=== PATIENT | male | born 2000 | race Caucasian/White ===

== ENCOUNTER 2018-11-23 12:55 | Observation (INO) | payer OTHER ==
[~2018-11-23] VITALS: Ht 193 cm; Wt 72.6 kg
--- OUTSIDE RECORDS SUMMARY | ~2018-11-23 | XMS | Encounter Summary ---
Demographics + + + | Address | [address] | | | [place] [address] | + + + | Home Phone | [phone] | + + + | Preferred Language | Unknown | + + + | Marital Status | Never | + + + | Jewish Affiliation | Unknown | + + + | Race | White | + + + | Ethnic Group | Not or | + + + Author + + + | Author | | + + + | Organization | | + + + | Address | [address] | | | [place] [address] | + + + | Phone | [phone] | + + + Care Team Providers + +------+ + | Care Road Freight Brake Coupler Name | Role | Phone | + +------+ + | Dr. Family Knight | 3 | Unavailable | | [place] | | | + +------+ + | Kamini Penaloza MD | 3 | Unavailable | + +------+ + | Dr. Family Knight | 4 | Unavailable | | [place] | | | + +------+ + Reason for Visit + + | Insomnia; Attention deficit hyperactivity disorder | + + Instructions + + | 1. Insomnia | + + | insomnia in children: care instructions | + + | sleep problems in your teen: care instructions | + + | 2. Attention deficit hyperactivity disorder | + + | attention deficit hyperactivity disorder (ADHD) in children: care instructions | + + | 3. Chronic back pain | + + | chiropractic referral - Please consult and provide treatment as needed. | + + | 4. Acne | + + + + | Discussion Note | + + | [id number] | + + Plan of Care + + + + + | Reminders | | | Provider | | | | | | + + + + + | Appointments | Office Visit 30 | 04/10/2017 3:45PM | Leonidas Marcano MD | + + + + + | | Office Visit 30 | on or around | Kamini Penaloza MD | | | | 06/16/2017 | | + + + + + | Lab | None recorded. | | | + + + + + | Referral | Chiropractic | 03/16/2017 | Srini Manriquez DC | | | Referral | | | + + + + + | Procedures | None recorded. | | | + + + + + | Surgeries | None recorded. | | | + + + + + | Imaging | None recorded. | | | + + + + + Medications + + + + | Name | Start Date | | | | | | + + + + + +---+ | amantadine HCl 100 mg capsule | | | take 1 capsule by mouth twice a day | | + +---+ | clonidine HCl 0.2 mg tablet | | | take 1 tablet by mouth at bedtime | | + +---+ | melatonin | | | 3mg 2 tablets at bedtime | | + +---+ | quetiapine ER 400 mg tablet,extended | | | release 24 hr take 1 tablet by mouth at | | | bedtime | | + +---+ | quetiapine ER 50 mg tablet,extended | | | release 24 hr take 2 tablets by mouth at | | | bedtime | | + +---+ | sertraline 100 mg tablet | | | take 1 tablet by mouth every morning | | + +---+ | Ventolin HFA 90 mcg/actuation aerosol | | | inhaler inhale 2 puffs by mouth every 4 | | | hours if needed | | + +---+ | Vitamin D3 2,000 unit capsule take 1 | | | capsule by mouth once daily NUTRIONAL | | | SUPPLEMENT SECONDARY TO LIVING IN [place]ST[place] | | | [place] | | + +---+ Medications Administered None recorded. Vitals + + + + + | Height | Weight | BMI | Blood Pressure | + + + + + | 6 ft 2 in | 163 lbs 9.6 oz | 21 kg/m2 | 100/68 mm[Hg] | + + + + + Lab Results None recorded. Allergies +---------+ + + + +-------+ | Code | Code System | Name | Reaction | Severity | Onset | +---------+ + + + +-------+ | [id number] | RxNorm | Adderall | Confusion | Moderate to | | | | | | | Severe | | +---------+ + + + +-------+ | [id number] | RxNorm | Aaron | | | | +---------+ + + + +-------+ | | | Broseley Flavor | | | | +---------+ + + + +-------+ | | | Sulfa | | | | | | | (Sulfonamide | | | | | | | | | | | | | | Antibiotics) | | | | +---------+ + + + +-------+ | [id number] | RxNorm | Sulfadiazine | | | | +---------+ + + + +-------+ Problems + + + + + + | Name | Status | Onset Date | Source | | | | | | | | + + + + + + + +--------+ +---+ | Attention Deficit | Active | 08/25/2016 | | | Hyperactivity | | | | | Disorder | | | | + +--------+ +---+ | Alcohol | Active | 08/25/2016 | | | Syndrome | | | | + +--------+ +---+ | Dysthymia | Active | 09/04/2016 | | + +--------+ +---+ | Insomnia | Active | 09/04/2016 | | + +--------+ +---+ Procedures None recorded. Vaccine List + + | Vaccine Type | + + | DTaP | + + | 1998 1 | + + | 1998 1 | + + | 01/21/2002 1 | + + | 04/23/2002 1 | + + | DTP-Hib | + + | 1998 1 | + + | 08/30/1999 1 | + + | Hep A ped/adol, 2 dose | + + | 01/01/2014 1 | + + | 12/22/2014 1 | + + | Hep B, adolescent or pediatric | + + | 1998 1 | + + | 1998 1 | + + | 1998 1 | + + | 01/01/2014 1 | + + | Hib (HbOC) | + + | 1998 1 | + + | Hib, unspecified formulation | + + | 1998 1 | + + | HPV, quadrivalent | + + | 01/01/2014 1 | + + | 03/12/2014 1 | + + | 12/22/2014 1 | + + | IPV | + + | 04/23/2002 1 | + + | meningococcal MCV4P | + + | 01/01/2014 1 | + + | MMR | + + | 08/30/1999 1 | + + | 04/23/2002 1 | + + | OPV | + + | 1998 1 | + + | 1998 1 | + + | 1998 1 | + + | 08/30/1999 1 | + + | Tdap | + + | 10/05/2011 1 | + + | varicella | + + | 03/10/2000 1 | + + | 01/01/2014 1 | + + Social History + + +---+ | Smoking Status | Never Smoker | | + + +---+ Past Encounters + + | 03/16/2017 | | Insomnia; Attention Deficit Hyperactivity Disorder; Chronic Back Pain; Acne | | Kamini Penaloza MD: [address] [address], Ph. 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 He is here to review his problem list, medications and nee d for vaccines to update his immunization schedule. He c/o thoracolumbar spine pain and in termittent hip and knee pain. He sits with slumped posture with kyphosis. He has no known b ack injury. He denies foot drop, bowel or bladder dysfunction. He is requesting to undergo consultation by Srini Manriquez, chiropractor.<div>Patient c/o insomnia and decreased appetite. He has been very stressed. He is taking melatonin 6 mg po q h.s. His consult with Leonidas zamorano, psychiatrist, from 10/03/16 is reviewed.</div><div>Patient requests review of labs done o n 09/13/16.</div> Review of Systems + + + | | Moderate Male ROS | + + + | Reported By: | Patient | + + + | Constitutional: | Constitutional: no fever, no significant | | | weight loss/gain | + + + | ENMT: | Mouth/Throat: no sore throat. Nose: no | | | nose/sinus problems. Eyes: no ocular | | | discharge. Ears no ear pain, no ringing in | | | the ears; decreased hearing in his left | | | ear | + + + | Cardiovascular: | Cardiovascular: no chest pain, no | | | palpitations | + + + | Respiratory: | Respiratory: no wheezing, no shortness of | | | breath | + + + | Gastrointestinal: | Gastrointestinal: no nausea, no vomiting, | | | no diarrhea | + + + | Genitourinary: | Genitourinary: no hematuria, no dysuria, | | | no urinary frequency | + + + | Musculoskeletal: | Musculoskeletal: no myalgias, | | | arthralgias/joint pain; back pain | + + + | Integumentary: | Skin: no pruritis, lesions; acne on face | | | at hairline | + + + | Neurologic: | Neurologic: no seizures, no headaches | + + + Physical Exam + + + | | Male Exam - Moderate | + + + | Reported By: | Patient | + + + | Constitutional: | General Appearance: awake, alert, oriented | | | x 3, NAD, hydrated; BMI = 21 | + + + | HEENT: | Eyes: EOMI. Ears: normal EACs, normal | | | tympanic membranes. Oropharynx: no | | | pharyngeal erythema, no pharyngeal | | | exudates; Normal dentition | + + + | Neck: | Neck: no cervical lymphadenopathy, no | | | thyroid nodules, no carotid bruits | + + + | Cardiovascular: | Heart Auscultation: RRR, normal S1, normal | | | S2, no murmurs | + + + | Lungs: | Auscultation: clear to auscultation | | | bilaterally, no wheezing, no | | | rales/crackles, no rhonchi | + + + | Abdomen: | Bowel Sounds: normal. Inspection and | | | Palpation: no tenderness. Liver: | | | non-tender. Spleen: non-tender | + + + | Musculoskeletal:: | Extremities: no cyanosis, no edema; lumbar | | | spine tenderness with paraspinal muscle | | | spasms | + + + | Skin: | Inspection and palpation: lesion; | | | erythematous, maculopapular lesions on | | | hairline | + + + | Notes: | Mood: easily distracted and states he is | | | stressed. | + + +"
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
--- OUTSIDE RECORDS SUMMARY | ~2018-11-23 | XMS | Encounter Summary ---
Demographics + + + | Address | [address] | | | [place] [address] | + + + | Home Phone | [phone] | + + + | Preferred Language | Unknown | + + + | Marital Status | Never | + + + | Baptist Affiliation | Unknown | + + + | Race | White | + + + | Ethnic Group | Not or | + + + Author + + + | Author | | + + + | Organization | | + + + | Address | [address] | | | [place] [address] | + + + | Phone | [phone] | + + + Care Team Providers + +------+ + | Care Glass Deposition Tender Name | Role | Phone | + +------+ + | Isamar Shelton MD | 3 | Unavailable | + +------+ + Reason for Visit + + | Procedure | + + Instructions + + | 1. Ganglion cyst | + + | lidocaine 1 %-epinephrine 1:100,000 injection solution | + + + + | Discussion Note | + + | [id number] | + + Patient educational handouts: No information available. Plan of Care + + + + + | Reminders | | | Provider | | | | | | + + + + + | Appointments | Work in 10 | 08/07/2018 12:00PM | Isamar Shelton, | | | | | MD | + + + + + | | Office Visit 30 | 08/15/2018 4:15PM | Leonidas Marcano MD | + + [...] HCl 0.1 mg tablet | | | TAKE ONE TABLET BY MOUTH IN THE MORNING | | + +---+ | clonidine HCl 0.2 mg tablet | | | TAKE ONE TABLET BY MOUTH AT BEDTIME | | + +---+ | lidocaine 1 %-epinephrine 1:100,000 | | | injection solution Inject now | | + +---+ | melatonin | | | 3mg 2 tablets at bedtime | | + +---+ | paroxetine 40 mg tablet | | | Take 1.5 tablets every day by oral route. | | + +---+ | quetiapine ER 400 mg tablet,extended | | | release 24 hr TAKE ONE TABLET BY MOUTH AT | | | BEDTIME | | + +---+ | quetiapine ER 50 mg tablet,extended | | | release 24 hr take 2 tablets by mouth at | | | bedtime | | + +---+ | Ventolin HFA 90 mcg/actuation aerosol | | | inhaler inhale 2 puffs by mouth every 4 | | | hours if needed | | + +---+ | Vitamin D3 2,000 unit capsule | | | TAKE ONE CAPSULE BY MOUTH ONE TIME DAILY | | + +---+ Medications Administered + + + + | Name | Date | | + + + + + + + | lidocaine 1 %-epinephrine 1:100,000 | 3047-07-05O07:05:00 | | injection solutionInject now | | + + + Vitals + + + + + | Height | Weight | BMI | Blood Pressure | + + + + + | 6 ft 2 in | 167 lbs | 21.4 kg/m2 | 118/78 mm[Hg] | + + + + + Lab Results None recorded. Allergies +---------+--------+ + + +--------+-------+ | Code | Code | Name | Reaction | Severity | Status | Onset | | | System | | | | | | +---------+--------+ + + +--------+-------+ | [id number] | RxNorm | Adderall | Confusion | Moderate | Active | | | | | | | to Severe | | | +---------+--------+ + + +--------+-------+ | [id number] | RxNorm | Aaron | | | [...] | | +---------+--------+ + + +--------+-------+ | [id number] | RxNorm | Sulfadiazi | | | [...] | 12/22/2014 1 | + + | influenza, injectable, quadrivalent | + + | 09/12/2017 0.5 mL | + + | influenza, injectable, quadrivalent, preservative free | + + | 05/29/2018 0.5 mL | + + | IPV | + + | 04/23/2002 1 | + + | 09/12/2017 0.5 mL | + + | meningococcal MCV4O | + + | 09/12/2017 | + + | 09/12/2017 0.5 mL | + + | meningococcal MCV4P | [...] | 10/05/2011 1 | + + | 09/12/2017 | + + | 09/12/2017 0.5 mL | + + | varicella | + + | 03/10/2000 1 | + + | 01/01/2014 1 | + + Social History + + +---+ | Smoking Status | Former Smoker | | + + +---+ Past Encounters + ---+ | 07/31/2018Ganglion CystSmckaylali Mary Shelton MD: [address], [place], [place] | | [address], Ph. | |Isamar Shelton MD: [address], [place] [address], Ph. [phone] | + ---+ | 07/24/2018Anxiety State; Attention Deficit Hyperactivity Disorder; Insomnia; | | Alcohol Syndrome; Major Depressive DisorderLeonidas Marcano MD: [address], | | [place] [address], Ph. | + ---+ | 07/03/2018Ganglion Cyst; Pain in Testicle; Dry SkinShelli Mary Shelton MD: [address] | | [address], [place] [address], Ph. | |Isamar Shelton MD: [address], [place] [address], Ph. | + ---+ History of Present Illness Note:James is a 18yo male here today for a ganglion cyst removal.<div>
</div>< div>He had an I&D performed on a 2 cm ganglion cyst on his LT wrist on 07/03/18 and approx 3 cc of clear synovial fluid was expressed. </div> Review of Systems + + + | [...] | discharge. Ears no ear pain, no loss of | | | hearing, no ringing in the ears | + + + | Cardiovascular: | [...] + | Musculoskeletal: | Musculoskeletal: no myalgias, no | | | arthralgias/joint pain | + + + | Integumentary: | Skin: lesions | + + + | Neurologic: | Neurologic: no seizures, no headaches | + + + Physical Exam + + + | | FM General Adult Exam-Male, General Adult | | | Exam | + + + | Reported By: | Patient | + + + | Constitutional: | General Appearance: well hydrated, awake, | | | alert, oriented x 3 | + + + | Neck: | Neck: ; No cervical lymphadenopathy, No | | | thyroid nodules, no carotid bruits | + + + | Lungs: | Auscultation: breath sounds normal; No | | | wheezes, rales, or rhonchi | + + + | Cardiovascular: | Heart Auscultation: RRR, no murmurs; | | | normal S1, normal S2, no rubs, no gallops | + + + | Musculoskeletal:: | Joints, Bones, and Muscles: ; No edema, | | | normal peripheral pulses | + + + | Neurologic: | Gait and Station: motor, sensory, reflexes | + + + | Skin: | Inspection and palpation: lesion | + + +"
--- OUTSIDE RECORDS SUMMARY | ~2018-11-23 | XMS | Encounter Summary ---
Demographics + + + | Address | [address] | | | [place] [address] | + + + | Home Phone | [phone] | + + + | Preferred Language | Unknown | + + + | Marital Status | Never | + + + | Zoroastrian Affiliation | Unknown | + + + | Race | White | + + + | Ethnic Group | Not or | + + + Author + + + | Author | | + + + | Organization | | + + + | Address | [address] | | | [place] [address] | + + + | Phone | [phone] | + + + Care Team Providers + +------+ + | Care Trapeze Performer Name | Role | Phone | + +------+ + | Dr. Family Knight | 3 | Unavailable | | [place] | | | + +------+ + | Isamar Shelton MD | 3 | Unavailable | + +------+ + | Dr. Family Knight | 4 | Unavailable | | [place] | | | + +------+ + Reason for Visit + + | None recorded. | + + Instructions + + | 1. Adult health examination | + + | 2. Memory impairment | + + | 3. Asthma | + + | Ventolin HFA 90 mcg/actuation aerosol inhaler | + + | 4. Influenza vaccination | + + | Flulaval Quad [id number] (PF) 60 mcg (15 mcg x 4)/0.5 mL IM syringe | + + + + | Discussion Note | + + | [id number] | + + Patient educational handouts: No information available. Plan of Care + + + + + | Reminders | | | Provider | | | | | | + + + + + | Appointments | Office Visit 30 | 06/24/2018 9:00AM | Leonidas Marcano MD | + + [...] TWICE DAILY | | + +---+ | Ciprodex 0.3 %-0.1 % ear drops,suspension | | | INSTILL 4 DROPS INTO AFFECTED EAR(S) BY | | | OTIC ROUTE 2 TIMES PER DAY FOR 7 DAYS | | + +---+ | clonidine HCl 0.1 mg tablet | | | TAKE ONE TABLET BY MOUTH IN THE MORNING | | + +---+ | clonidine HCl 0.2 mg tablet | | | TAKE ONE TABLET BY MOUTH AT BEDTIME | | + +---+ | melatonin | | | 3mg 2 tablets at bedtime | | + +---+ | paroxetine 20 mg tablet | | | TAKE ONE TABLET BY MOUTH ONE TIME DAILY | | + +---+ | paroxetine 40 mg tablet | | | Take 1.5 tablets every day by oral route. | | + +---+ | quetiapine ER 400 mg tablet,extended | | | release 24 hr TAKE ONE TABLET BY MOUTH AT | | | BEDTIME | | + +---+ | quetiapine ER 50 mg tablet,extended | | | release 24 hr TAKE TWO TABLETS BY MOUTH | | | DAILY AT BEDTIME | | + +---+ | sertraline 50 mg tablet | | | Take 50 mg every day by oral route. | | + +---+ | Ventolin HFA 90 mcg/actuation aerosol | | | inhaler inhale 2 puffs by mouth every 4 | | | hours if needed | | + +---+ | Vitamin D3 2,000 unit capsule | | | TAKE ONE CAPSULE BY MOUTH ONE TIME DAILY | | + +---+ Medications Administered None recorded. Vitals + + + + + | Height | Weight | BMI | Blood Pressure | + + + + + | 6 ft 2 in | 171 lbs | 22 kg/m2 | 110/68 mm[Hg] | + + + + + Lab Results None recorded. Allergies +---------+--------+ + + +--------+-------+ | Code | Code | Name | Reaction | Severity | Status | Onset | | | System | | | | | | +---------+--------+ + + +--------+-------+ | [id number] | RxNorm | Adderall | Confusion | Moderate | Active | | | | | | | to Severe | | | +---------+--------+ + + +--------+-------+ | [id number] | RxNorm | [place] | | | Active | | +---------+--------+ + + +--------+-------+ | | | [place] | | | Active | | | [...] | | +---------+--------+ + + +--------+-------+ | [id number] | RxNorm | Sulfadiazi | | | [...] | 08/30/1999 1 | + + | linda Peters/dinora, 2 dose | + + | 01/01/2014 [...] + +---+ Past Encounters + + | 05/29/2018Adult Health Examination; Memory Impairment; Asthma; Influenza | | Arin Shelton MD: [address] [address], | | Ph. | + + | 05/17/2018Anxiety State; Attention Deficit Hyperactivity Disorder; Insomnia; | | Alcohol Syndrome; Major Depressive DisorderLeonidas Marcano MD: [id number] [facility], | | [place] [address], Ph. | + + History of Present Illness Note:James is a 18yo male here today with his sister for a routine physical.<div>
</div><div>1. Memory Impairment: The pt reports short term memory issues. He says he has trouble remembering everything and his memory is not selective. He states he "can't even re member yesterday." He has had brain imaging done which was normal. </div><div>
</div><div >2. Depression/Anxiety: Sister reports she noticed the pt seemed to be more motivated after starting new medication but he is now starting to level off again. He is followed by Dr. Fermin harmon who manages his medications. </div> Review of Systems + + + [...] + | Integumentary: | Skin: no pruritis, no lesions | + + + | Neurologic: | Neurologic: no seizures, no headaches | + + + Physical Exam + + + | | General Adult Exam | + + + | Reported By: | Patient | + + + | Constitutional: | General Appearance: awake, alert, oriented | | | x 3, NAD, hydrated; Not interactive in | | | discussion, on phone the whole time | + + + | ENMT: | Neck: ; No cervical lymphadenopathy, No | | | thyroid nodules, no carotid bruits | + + + | Cardiovascular: | Heart: regular heart rate, no murmurs; | | | normal S1, normal S2, no rubs, no gallops | + + + | Lungs: | Chest/Lungs: clear to auscultation; No | | | wheezes, rales, or rhonchi | + + + | Musculoskeletal: | Musculoskeletal: ; No edema, normal | | | peripheral pulses | + + + | Neurologic: | Neurological: motor, sensory, reflexes | + + +
--- OUTSIDE RECORDS SUMMARY | ~2018-11-23 | XMS | Continuity of Care Document ---
Demographics + + + | Address | [address] | | | [place] [address] | + + + | Home Phone | MES | + + + | Preferred Language | Unknown | + + + | Marital Status | Unknown | + + + | Lutheran Affiliation | Unknown | + + + | Race | Unknown | + + + | Ethnic Group | Unknown | + + + Author + + + | Author | [facility] | + + + | Organization | [facility] | + + + | Address | [address] | | | [place] [address] | + + + | Phone | | + + + Support + + + + + | Name | Relationship | Address | Phone | + + + + + | Agustina | Caregiver | Emergency | | | [address] Zamora [address] | | [place], | | | | | [place] [address] | | + + + + + | Isamar Shelton MD | Caregiver | [address] | | | | | [place], | | | | | [place] [address] | | + + + + + | YUNIEL VILLAREAL | [facility] | [address] | | | | | [place] [address] | | + + + + + Care Team Providers + + + + | Care Power Plant Mechanic Name | Role | Phone | + + + + | Isamar Shelton MD | Unavailable | | + + + + Insurance Providers + + + + + | Payer Name | Policy Number | Subscriber Name | Relationship | + + + + + | [employer] | [id number] | KEVIN MONO | SELF | + + + + + Chief Complaint and Reason for Visit + + + | Reason for Visit | AMB ABD RIB BACK PAIN | + + + Problems Active Medical Problems + + + +--------+ | Problem | Onset Date | Recorded Date | Status | + + + +--------+ | Ankle sprain | Unknown | 01/15/17 | Active | + + + +--------+ | Finger laceration | Unknown | 11/05/17 | Active | + + + +--------+ | Depression | Unknown | 01/04/18 | Active | + + + +--------+ | 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 | | | | + + + +--------+ Medications Current Home Medications + +------+-------+-------+ + + +--------+ | Medicati | Dose | Units | Route | Directio | Days/Qty | Instruct | Start | | on | | | | ns | | ions | Date | + +------+-------+-------+ + + +--------+ | Amantadi | 100 | MG | ORAL | Twice | | | | | ne HCl | | | | Each Day | | | | | (AMANTAD | | | | | | | | | INE) 100 | | | | | | | | | MG CAP | | | | | | | | + +------+-------+-------+ + + +--------+ | Clonidin | 0.2 | MG | ORAL | At | | | | | e | | | | Bedtime | | | | | (Catapre | | | | | | | | | s) 0.2 | | | | | | | | | MG TAB | | | | | | | | + +------+-------+-------+ + + +--------+ | Clonidin | 0.1 | MG | ORAL | Daily | | | | | e Hcl | | | | | | | | | (Catapre | | | | | | | | | s) 0.1 | | | | | | | | | MG TAB | | | | | | | | + +------+-------+-------+ + + +--------+ | Melatoni | 6 | MG | ORAL | At | | | | | n 3 MG | | | | Bedtime | | | | | TAB | | | | | | | | + +------+-------+-------+ + + +--------+ | PAROXETI | 20 | MG | ORAL | Daily | | | | | NE HCL | | | | | | | | | (PAXIL) | | | | | | | | | 40 MG | | | | | | | | | TABLET | | | | | | | | + +------+-------+-------+ + + +--------+ | Quetiapi | 100 | MG | ORAL | At | | | | | ne | | | | Bedtime | | | | | Fumarate | | | | | | | | | | | | | | | | | | (Seroque | | | | | | | | | l) 100 | | | | | | | | | MG TAB | | | | | | | | + +------+-------+-------+ + + +--------+ | Quetiapi | 400 | MG | ORAL | At | | | | | ne | | | | Bedtime | | | | | Fumarate | | | | | | | | | | | | | | | | | | (Seroque | | | | | | | | | l) 200 | | | | | | | | | MG TAB | | | | | | | | + +------+-------+-------+ + + +--------+ | Sertrali | 50 | MG | ORAL | Daily | | | | | ne Hcl | | | | | | | | | (Zoloft) | | | | | | | | | 50 MG | | | | | | | | | TAB | | | | | | | | + +------+-------+-------+ + + +--------+ Past Home Medications + + + + + | Medication | Directions | Ordered | Status | + + + + + | Amantadine Hcl | | Unknown | Discontinued | | (Amantadine) 100 Mg | | | | | Cap Cap, 100 Mg | | | | + + + + + | Amantadine Hcl | Daily | Unknown | Discontinued | | (Amantadine) 50 | | | | | Mg/5 Ml Syrup | | | | | Syrup, 50 Mg Oral | | | | + + + + + | Aripiprazole | At Bedtime | Unknown | Discontinued | | (Abilify) 10 Mg Tab | | | | | Tab, 12.5 Mg Oral | | | | + + + + + | Cholecalciferol | Daily | Unknown | Discontinued | | (Vitamin D3) 1,000 | | | | | Unit Tablet Tablet, | | | | | 2,000 Unit Oral | | | | + + + + + | Intuiv ? , | | Unknown | Discontinued | + + + + + | Ibuprofen (Motrin) | Every 8 Hours as | 01/15/17 | Discontinued | | 600 Mg Tab Tab, 600 | needed for Pain | | | | Mg Oral | | | | + + + + + | Methylin , 1 Tab | Twice Each Day | Unknown | Discontinued | | Oral | | | | + + + + + Social History + + + + + | Query | Response | Start Date | Stop Date | + + + + + | Smoking status/ | Never Smoker | | | + + + + + Hospital Discharge Instructions No hospital discharge instructions. Plan of Care + + + | Discharge Date | 08/06/18 | + + + | Disposition | HOME | + + + | Condition at Discharge | Good | + + + | Instructions/Education Provided | Stimulant Use Disorder-Methamphetamines | + + + | Prescriptions | See Medications Section | + + + | Referrals | Isamar Shelton MD - | + + + | Additional Instructions/Education | Stop using meth. It will kill you | + + + Functional Status No functional status results. Allergies, Adverse Reactions, Alerts + +---------+ + +--------+ + | Allergen | Type | Severity | Reaction | Status | Last Updated | + +---------+ + +--------+ + | Sulfa | Allergy | Unknown | | Active | 08/06/18 | | (Sulfonamide | | | | | | | | | | | | | | Antibiotics) | | | | | | + +---------+ + +--------+ + | caffeine | Allergy | Unknown | | Active | 08/06/18 | + +---------+ + +--------+ + | mallorie | Allergy | Unknown | | Active | 08/06/18 | + +---------+ + +--------+ + Immunizations No Known History of Immunizations. Vital Signs + + + + | Vital Reading | Collection Date/Time | Result | + + + + | Blood Pressure | 08/06/18 11:06pm | 124/59 | + + + + | Temperature | 18 11:06pm | 98.9 F | + + + + | Temperature Source | 08/06/18 11:06pm | Temporal | + + + + | Respiratory Rate | 18 11:06pm | 16 | + + + + | Pulse Rate | 18 11:06pm | 94 | + + + + | Bedside Pulse Oximetry | 08/06/18 11:06pm | 99 | + + + + | Height | 18 11:06pm | 6 ft 4 in | + + + + | Height | 18 11:06pm | 193.04 cm | + + + + | Weight | 18 11:06pm | 167 lb | + + + + | Weight | 18 11:06pm | 75.75 kg | + + + + | Body Mass Index | 08/06/18 11:06pm | 20.3 kg/m2 | + + + + Results No known relevant diagnostic tests, laboratory data and/or discharge summary. Procedures No Known History of Procedures. Encounters + + + + + + | Encounter | Location | Arrival/Admit | Discharge/Depar | Attending | | | | Date | t Date | Provider | + + + + + + | Departed | [facility] | 08/06/18 | 08/06/18 | Agustina, | | Emergency | [facility] | 11:03pm | 11:50pm | Vicky Zamora DO | + + + + + + + + + | Encounter Diagnosis | Onset Date | + + + | Methamphetamine abuse | | + + +"
--- OUTSIDE RECORDS SUMMARY | ~2018-11-23 | XMS | Continuity of Care Document ---
Demographics + + + | Address | [address] | | | [place] [address] | + + + | Home Phone | MES | + + + | Preferred Language | Unknown | + + + | Marital Status | Unknown | + + + | Sikh Affiliation | Unknown | + + + | Race | Unknown | + + + | Ethnic Group | Unknown | + + + Author + + + | Author | [facility] | + + + | Organization | [facility] | + + + | Address | [address] | | | [place] [address] | + + + | Phone | | + + + Support + + + + + | Name | Relationship | Address | Phone | + + + + + | Ismaar Shelton MD | Caregiver | [address] | | | | | [place], | | | | | [place] [address] | | + + + + + | Luis More | Caregiver | Emergency | | | | | [place] | | | | | [place] [address] | | + + + + + | Garry Beauchamp | Caregiver | Emergency | | | A | | [place] | | | | | [place] [address] | | + + + + + | Garry Beauchamp | Caregiver | Emergency | | | [address] | | [place] | | | | | [place] [address] | | + + + + + | YUNIEL VILLAREAL | [facility] | [address] | | | | | [place] [address] | | + + + + + Care Team Providers + + + + | Care Lipcoat Sprayer Name | Role | Phone | + + + + | Isamar Shelton MD | Unavailable | | + + + + Insurance Providers + + + + + | Payer Name | Policy Number | Subscriber Name | Relationship | + + + + + | [facility] | [id number] | KEVIN VILLAREAL | SELF | + + + + + Advance Directives + + + + | Directive | Response | Recorded Date/Time | + + + + | Code Status | FULL CODE | 01/02/18 2:15pm | + + + + Chief Complaint and Reason for Visit + + + | Reason for Visit | SUICIDAL | + + + Problems Active Medical [...] | Active | + + + +--------+ Medications Current Home Medications + +------+-------+-------+ + + +--------+ | Medicati | Dose | Units | Route | Directio | Days/Qty | Instruct | Start | | on | | | | ns | | ions | Date | + +------+-------+-------+ + + +--------+ | Amantadi | 50 | MG | ORAL | Daily | | | | | ne HCl | | | | | | | | | (Amantad | | | | | | | | | ine) 50 | | | | | | | | | MG/5 ML | | | | | | | | | SYRUP | | | | | | | [...] + + + | Discharge Date | 01/04/18 | + + + | Disposition | HOME | + + + | Instructions/Education Provided | Depression, Adult | + + + | Prescriptions | See Medications Section | + + + Functional Status No functional status results. Allergies, Adverse Reactions, Alerts + +---------+ + +--------+ + | Allergen | Type | Severity | Reaction | Status | Last Updated | + +---------+ + +--------+ + | Sulfa | Allergy | Mild | | Active | 01/02/18 | | (Sulfonamide | | | | | | | | | | | | | | Antibiotics) | | | | | | + +---------+ + +--------+ + | caffeine | Allergy | Unknown | | Active | 01/02/18 | + +---------+ + +--------+ + | mallorie | Allergy | Unknown | | Active | 01/02/18 | + +---------+ + +--------+ + Immunizations No Known History of Immunizations. Vital Signs + + + + | Vital Reading | Collection Date/Time | Result | + + + + | Blood Pressure | 01/04/18 8:13am | 106/56 | + + + + | Temperature | 01/04/18 8:13am | 98.1 F | + + + + | Temperature Source | 01/02/18 12:47pm | Temporal | + + + + | Respiratory Rate | 01/04/18 8:13am | 18 | + + + + | Pulse Rate | 01/04/18 8:13am | 72 | + + + + | Bedside Pulse Oximetry | 01/04/18 8:13am | 97 | + + + + | Height | 05/09/18 12:47pm | 6 ft 4 in | + + + + | Height | 01/02/18 12:47pm | 193.04 cm | + + + + | Weight | 18 12:47pm | 170 lb | + + + + | Weight | 18 12:47pm | 77.11 kg | + + + + | Body Mass Index | 18 12:47pm | 20.7 kg/m2 | + + + + Results Laboratory Results + + + +-------+ + + + + | Test | Result | Units | Flags | Referenc | Collecti | Result | Comments | | Name | | | | e | on | Date/Reyes | | | | | | | | Date/Reyes | e | | | | | | | | e | | | + + + +-------+ + + + + | White | 6.57 | K/mm3 | | 4.00-11. | 01/02/18 | 01/02/18 | | | Blood | | | | 30 | 3:58pm | 4:11pm | | | Count | | | | | | | | + + + +-------+ + + + + | Red | 5.47 | M/mm3 | | 4.30-5.9 | 01/02/18 | 01/02/18 | | | Blood | | | | 0 | 3:58pm | 4:11pm | | | Count | | | | | | | | + + + +-------+ + + + + | Hemoglob | 15.5 | g/dL | | 13.5-17. | 01/02/18 | 01/02/18 | | | in | | | | 5 | 3:58pm | 4:11pm | | + + + +-------+ + + + + | Hematocr | 46.8 | % | | 37.0-53. | 01/02/18 | 01/02/18 | | | it | | | | 0 | 3:58pm | 4:11pm | | + + + +-------+ + + + + | Mean | 86 | fL | | 80-100 | 01/02/18 | 01/02/18 | | | Corpuscu | | | | | 3:58pm | 4:11pm | | | lar | | | | | | | | | Volume | | | | | | | | + + + +-------+ + + + + | Mean | 28.3 | pg | | 26.0-34. | 01/02/18 | 01/02/18 | | | Corpuscu | | | | 0 | 3:58pm | 4:11pm | | | lar | | | | | | | | | Hemoglob | | | | | | | | | in | | | | | | | | + + + +-------+ + + + + | Mean | 33.1 | g/dL | | 31.5-36. | 01/02/18 | 01/02/18 | | | Corpuscu | | | | 5 | 3:58pm | 4:11pm | | | lar | | | | | | | | | Hemoglob | | | | | | | | | in | | | | | | | | | Concent | | | | | | | | + + + +-------+ + + + + | RDW | 40.4 | fL | | 35.1-46. | 01/02/18 | 01/02/18 | | | Standard | | | | 3 | 3:58pm | 4:11pm | | | | | | | | | | | | Deviatio | | | | | | | | | n | | | | | | | | + + + +-------+ + + + + | RDW | 12.9 | % | | 11.7-14. | 01/02/18 | 01/02/18 | | | Coeffici | | | | 2 | 3:58pm | 4:11pm | | | ent of | | | | | | | | | Variatio | | | | | | | | | n | | | | | | | | + + + +-------+ + + + + | Platelet | 175 | K/mm3 | | 150-400 | 01/02/18 | 01/02/18 | | | Count | | | | | 3:58pm | 4:11pm | | + + + +-------+ + + + + | Mean | 11.1 | fL | | 9.1-12.4 | 01/02/18 | 01/02/18 | | | Platelet | | | | | 3:58pm | 4:11pm | | | Volume | | | | | | | | + + + +-------+ + + + + | Differen | Auto | | | | 01/02/18 | 01/02/18 | | | tial | | | | | 3:58pm | 4:11pm | | | Method | | | | | | | | + + + +-------+ + + + + | Neutroph | 74 | % | H | 41-73 | 01/02/18 | 01/02/18 | | | ils (%) | | | | | 3:58pm | 4:11pm | | | (Auto) | | | | | | | | + + + +-------+ + + + + | Lymphocy | 19 | % | L | 21-46 | 01/02/18 | 01/02/18 | | | jaun (%) | | | | | 3:58pm | 4:11pm | | | (Auto) | | | | | | | | + + + +-------+ + + + + | Monocyte | 6 | % | | 4-13 | 01/02/18 | 01/02/18 | | | s (%) | | | | | 3:58pm | 4:11pm | | | (Auto) | | | | | | | | + + + +-------+ + + + + | Eosinoph | 1 | % | | 0-6 | 01/02/18 | 01/02/18 | | | ils (%) | | | | | 3:58pm | 4:11pm | | | (Auto) | | | | | | | | + + + +-------+ + + + + | Basophil | 0 | % | | 0-2 | 01/02/18 | 01/02/18 | | | s (%) | | | | | 3:58pm | 4:11pm | | | (Auto) | | | | | | | | + + + +-------+ + + + + | Immature | 0 | % | | 0-1 | 01/02/18 | 01/02/18 | | | | | | | | 3:58pm | 4:11pm | | | Granuloc | | | | | | | | | yte % | | | | | | | | | (Auto) | | | | | | | | + + + +-------+ + + + + | Nucleate | 0.0 | /100 WBC | | 0.0-0.2 | 01/02/18 | 01/02/18 | | | d Red | | | | | 3:58pm | 4:11pm | | | Blood | | | | | | | | | Cells % | | | | | | | | + + + +-------+ + + + + | Absolute | 4.83 | K/mm3 | | 1.96-9.1 | 01/02/18 | 01/02/18 | | | | | | | 5 | 3:58pm | 4:11pm | | | Neutroph | | | | | | | | | ils | | | | | | | | | (auto) | | | | | | | | + + + +-------+ + + + + | Absolute | 1.23 | K/mm3 | | 0.84-5.2 | 01/02/18 | 01/02/18 | | | | | | | 0 | 3:58pm | 4:11pm | | | Lymphocy | | | | | | | | | jaun | | | | | | | | | (auto) | | | | | | | | + + + +-------+ + + + + | Absolute | 0.38 | K/mm3 | | 0.16-1.4 | 01/02/18 | 01/02/18 | | | | | | | 7 | 3:58pm | 4:11pm | | | Monocyte | | | | | | | | | s (auto) | | | | | | | | + + + +-------+ + + + + | Absolute | 0.09 | K/mm3 | | 0.00-0.6 | 01/02/18 | 01/02/18 | | | | | | | 8 | 3:58pm | 4:11pm | | | Eosinoph | | | | | | | | | ils | | | | | | | | | (auto) | | | | | | | | + + + +-------+ + + + + | Absolute | 0.02 | K/mm3 | | 0.00-0.2 | 01/02/18 | 01/02/18 | | | | | | | 3 | 3:58pm | 4:11pm | | | Basophil | | | | | | | | | s (auto) | | | | | | | | + + + +-------+ + + + + | Absolute | 0.02 | K/mm3 | | 0.00-0.1 | 01/02/18 | 01/02/18 | | | | | | | 0 | 3:58pm | 4:11pm | | | Immature | | | | | | | | | | | | | | | | | | Granuloc | | | | | | | | | yte | | | | | | | | | (auto | | | | | | | | + + + +-------+ + + + + | Nucleate | 0.00 | K/mm3 | | 0.00-0.0 | 01/02/18 | 01/02/18 | | | d RBC | | | | 2 | 3:58pm | 4:11pm | | | Absolute | | | | | | | | | Count | | | | | | | | | (auto) | | | | | | | | + + + +-------+ + + + + | Sodium | 142 | mmol/L | | 136-145 | 01/02/18 | 01/02/18 | | | Level | | | | | 3:58pm | 4:40pm | | + + + +-------+ + + + + | Potassiu | 4.4 | mmol/L | | 3.5-5.5 | 01/02/18 | 01/02/18 | | | m Level | | | | | 3:58pm | 4:40pm | | + + + +-------+ + + + + | Chloride | 105 | mmol/L | | 98-108 | 01/02/18 | 01/02/18 | | | Level | | | | | 3:58pm | 4:40pm | | + + + +-------+ + + + + | Carbon | 31 | mmol/L | | 21-32 | 01/02/18 | 01/02/18 | | | Dioxide | | | | | 3:58pm | 4:40pm | | | Level | | | | | | | | + + + +-------+ + + + + | Anion | 6 | mmol/L | | 6-16 | 01/02/18 | 01/02/18 | | | Gap | | | | | 3:58pm | 4:40pm | | + + + +-------+ + + + + | Glucose | 91 | mg/dL | | 70-99 | 01/02/18 | 01/02/18 | | | Level | | | | | 3:58pm | 4:40pm | | + + + +-------+ + + + + | Blood | 13 | mg/dL | | 8-21 | 01/02/18 | 01/02/18 | | | Urea | | | | | 3:58pm | 4:40pm | | | Nitrogen | | | | | | | | + + + +-------+ + + + + | Creatini | 1.00 | mg/dL | | 0.60-1.2 | 01/02/18 | 01/02/18 | | | ne | | | | 0 | 3:58pm | 4:40pm | | + + + +-------+ + + + + | BUN/Crea | 13.1 | % | | 12.0-20. | 01/02/18 | 01/02/18 | | | tinine | | | | 0 | 3:58pm | 4:40pm | | | Ratio | | | | | | | | + + + +-------+ + + + + | Glomerul | >60 | | | 60- | 01/02/18 | 01/02/18 | Non-Afri | | ar | | | | | 3:58pm | 4:40pm | can | | Filtrati | | | | | | | [place] | | on Rate | | | | | | | GFR | | Calc | | | | | | | CalcFor | | | | | | | | | | | | | | | | | | [place] | | | | | | | | | s, | | | | | | | | | multiply | | | | | | | | | the | | | | | | | | | calculat | | | | | | | | | ed GFR | | | | | | | | | by | | | | | | | | | 1.21Refe | | | | | | | | | rence | | | | | | | | | Range: | | | | | | | | | Above 60 | | | | | | | | | | | | | | | | | | mL/min/1 | | | | | | | | | .73m^2 | + + + +-------+ + + + + | Calcium | 9.4 | mg/dL | | 8.5-10.1 | 01/02/18 | 01/02/18 | | | Level | | | | | 3:58pm | 4:40pm | | + + + +-------+ + + + + | Total | 7.7 | g/dL | | 6.4-8.2 | 01/02/18 | 01/02/18 | | | Protein | | | | | 3:58pm | 4:40pm | | + + + +-------+ + + + + | Albumin | 4.2 | g/dL | | 3.4-5.0 | 01/02/18 | 01/02/18 | | | | | | | | 3:58pm | 4:40pm | | + + + +-------+ + + + + | Globulin | 3.5 | g/dL | | 2.2-4.0 | 01/02/18 | 01/02/18 | | | | | | | | 3:58pm | 4:40pm | | + + + +-------+ + + + + | Albumin/ | 1.2 | | | 0.8-1.8 | 01/02/18 | 01/02/18 | | | Globulin | | | | | 3:58pm | 4:40pm | | | Ratio | | | | | | | | + + + +-------+ + + + + | Total | 0.3 | mg/dL | | 0.1-1.0 | 01/02/18 | 01/02/18 | | | Bilirubi | | | | | 3:58pm | 4:40pm | | | n | | | | | | | | + + + +-------+ + + + + | Alkaline | 93 | U/L | | 58-237 | 01/02/18 | 01/02/18 | | | | | | | | 3:58pm | 4:40pm | | | Phosphat | | | | | | | | | ase | | | | | | | | + + + +-------+ + + + + | Aspartat | 25 | U/L | | 12-37 | 01/02/18 | 01/02/18 | | | e Amino | | | | | 3:58pm | 4:40pm | | | Transf | | | | | | | | | (AST/SGO | | | | | | | | | T) | | | | | | | | + + + +-------+ + + + + | Alanine | 31 | U/L | | 12-78 | 01/02/18 | 01/02/18 | | | Aminotra | | | | | 3:58pm | 4:40pm | | | nsferase | | | | | | | | | | | | | | | | | | (ALT/SGP | | | | | | | | | T) | | | | | | | | + + + +-------+ + + + + | Thyroid | 0.780 | uIU/mL | | 0.360-4. | 01/02/18 | 01/02/18 | | | Stimulat | | | | 800 | 3:58pm | 4:40pm | | | ing | | | | | | | | | Hormone | | | | | | | | | (TSH) | | | | | | | | + + + +-------+ + + + + | Ethyl | <3 | mg/dL | | | 01/02/18 | 01/02/18 | FATALITI | | Alcohol | | | | | 3:58pm | 4:40pm | ES OCCUR | | Level | | | | | | | IN | | | | | | | | | CONCENTR | | | | | | | | | ATIONS | | | | | | | | | BETWEEN | | | | | | | | | 400-800 | | | | | | | | | mg/dl.No | | | | | | | | | te: | | | | | | | | | Testing | | | | | | | | | intended | | | | | | | | | for | | | | | | | | | medical | | | | | | | | | use | | | | | | | | | only. | + + + +-------+ + + + + | Acetamin | <2.0 | ug/mL | L | 10.0-30. | 01/02/18 | 01/02/18 | Not a | | ophen | | | | 0 | 3:58pm | 4:40pm | number; | | Level | | | | | | | no | | | | | | | | | computat | | | | | | | | | ion | | | | | | | | | performe | | | | | | | | | d | | | | | | | | | (Invalid | | | | | | | | | | | | | | | | | | syntax)R | | | | | | | | | esult | | | | | | | | | cancelle | | | | | | | | | dTHERAPE | | | | | | | | | UTIC | | | | | | | | | RANGE: | | | | | | | | | 10-30 | | | | | | | | | ug/ml | + + + +-------+ + + + + | Salicyla | <1.7 | mg/dL | L | 2.8-20.0 | 01/02/18 | 01/02/18 | Therapeu | | jaun | | | | | 3:58pm | 4:40pm | tic | | Level | | | | | | | Range:An | | | | | | | | | algesic: | | | | | | | | | 2.8 - | | | | | | | | | 10 | | | | | | | | | mg/dLAnt | | | | | | | | | i-Inflam | | | | | | | | | matory: | | | | | | | | | 15-20 | | | | | | | | | mg/dL | + + + +-------+ + + + + | Urine | Voided | | | | 01/02/18 | 01/02/18 | | | Source | | | | | 3:44pm | 4:25pm | | + + + +-------+ + + + + | Urine | Yellow | | | P-Yellow | 01/02/18 | 01/02/18 | | | Color | | | | | 3:44pm | 4:25pm | | + + + +-------+ + + + + | Urine | Clear | | | Clear | 01/02/18 | 01/02/18 | | | Appearan | | | | | 3:44pm | 4:25pm | | | ce | | | | | | | | + + + +-------+ + + + + | Urine | 1.025 | | * | 1.003-1. | 01/02/18 | 01/02/18 | | | Specific | | | | 022 | 3:44pm | 4:25pm | | | [place] | | | | | | | | + + + +-------+ + + + + | Urine pH | 6.0 | | | 5.0-8.0 | 01/02/18 | 01/02/18 | | | | | | | | 3:44pm | 4:25pm | | + + + +-------+ + + + + | Urine | Neg | | | Neg | 01/02/18 | 01/02/18 | | | Leukocyt | | | | | 3:44pm | 4:25pm | | | e | | | | | | | | | Esterase | | | | | | | | + + + +-------+ + + + + | Urine | Neg | | | Neg | 01/02/18 | 01/02/18 | | | Nitrite | | | | | 3:44pm | 4:25pm | | + + + +-------+ + + + + | Urine | Neg | | | Neg | 18 | 01/02/18 | | | Protein | | | | | 3:44pm | 4:25pm | | + + + +-------+ + + + + | Urine | Neg | | | Neg | 18 | 01/02/18 | | | Glucose | | | | | 3:44pm | 4:25pm | | + + + +-------+ + + + + | Urine | Neg | | | Neg | 01/02/18 | 01/02/18 | | | Ketones | | | | | 3:44pm | 4:25pm | | + + + +-------+ + + + + | Urine | NORM | | | Normal | 18 | 01/02/18 | | | Urobilin | | | | | 3:44pm | 4:25pm | | | ogen | | | | | | | | + + + +-------+ + + + + | Urine | Neg | | | Neg | 01/02/18 | 01/02/18 | | | Bilirubi | | | | | 3:44pm | 4:25pm | | | n | | | | | | | | + + + +-------+ + + + + | Urine | Neg | | | Neg | 01/02/18 | 01/02/18 | | | Blood | | | | | 3:44pm | 4:25pm | | + + + +-------+ + + + + | Urine | No | | | No | 01/02/18 | 01/02/18 | | | Culture | | | | | 3:44pm | 4:25pm | | | Indicate | | | | | | | | | d | | | | | | | | + + + +-------+ + + + + | Urine | Not | | | | 01/02/18 | 01/02/18 | Unconfir | | Amphetam | Detected | | | | 3:44pm | 4:28pm | med | | ine | | | | | | | screenin | | Screen | | | | | | | g | | | | | | | | | results | | | | | | | | | are to | | | | | | | | | be used | | | | | | | | | only for | | | | | | | | | medical | | | | | | | | | | | | | | | | | | purposes | | | | | | | | | . | | | | | | | | | Confirma | | | | | | | | | tion of | | | | | | | | | a | | | | | | | | | positive | | | | | | | | | | | | | | | | | | screenin | | | | | | | | | g result | | | | | | | | | is | | | | | | | | | availabl | | | | | | | | | e upon | | | | | | | | | request. | | | | | | | | | Screen | | | | | | | | | evaluate | | | | | | | | | s for | | | | | | | | | the | | | | | | | | | presence | | | | | | | | | of | | | | | | | | | Amphetam | | | | | | | | | ine at a | | | | | | | | | | | | | | | | | | threshol | | | | | | | | | d | | | | | | | | | concentr | | | | | | | | | ationof | | | | | | | | | 500 | | | | | | | | | ng/mL. | + + + +-------+ + + + + | Urine | Not | | | | 01/02/18 | 01/02/18 | Unconfir | | Methamph | Detected | | | | 3:44pm | 4:28pm | med | | etamines | | | | | | | screenin | | Screen | | | | | | | g | | | | | | | | | results | | | | | | | | | are to | | | | | | | | | be used | | | | | | | | | only for | | | | | | | | | medical | | | | | | | | | | | | | | | | | | purposes | | | | | | | | | . | | | | | | | | | Confirma | | | | | | | | | tion of | | | | | | | | | a | | | | | | | | | positive | | | | | | | | | | | | | | | | | | screenin | | | | | | | | | g result | | | | | | | | | is | | | | | | | | | availabl | | | | | | | | | e upon | | | | | | | | | request. | | | | | | | | | Screen | | | | | | | | | evaluate | | | | | | | | | s for | | | | | | | | | theprese | | | | | | | | | nce of | | | | | | | | | Methamph | | | | | | | | | etamine | | | | | | | | | at a | | | | | | | | | threshol | | | | | | | | | d | | | | | | | | | concentr | | | | | | | | | ation of | | | | | | | | | 500 | | | | | | | | | ng/mL. | + + + +-------+ + + + + | Urine | Not | | | | 01/02/18 | 01/02/18 | Unconfir | | [place] | Detected | | | | 3:44pm | 4:28pm | med | | jaun | | | | | | | screenin | | Screen | | | | | | | g | | | | | | | | | results | | | | | | | | | are to | | | | | | | | | be used | | | | | | | | | only | | | | | | | | | formedic | | | | | | | | | al | | | | | | | | | purposes | | | | | | | | | . | | | | | | | | | Confirma | | | | | | | | | tion of | | | | | | | | | a | | | | | | | | | positive | | | | | | | | | | | | | | | | | | screenin | | | | | | | | | gresult | | | | | | | | | is | | | | | | | | | availabl | | | | | | | | | e upon | | | | | | | | | request. | | | | | | | | | Screen | | | | | | | | | | | | | | | | | | evaluate | | | | | | | | | s forthe | | | | | | | | | | | | | | | | | | presence | | | | | | | | | of | | | | | | | | | [place]bit[place] | | | | | | | | | te at a | | | | | | | | | threshol | | | | | | | | | d | | | | | | | | | concentr | | | | | | | | | ationof | | | | | | | | | 200 | | | | | | | | | ng/mL. | + + + +-------+ + + + + | Urine | Not | | | | 01/02/18 | 01/02/18 | Unconfir | | Benzodia | Detected | | | | 3:44pm | 4:28pm | med | | zepines | | | | | | | screenin | | Screen | | | | | | | g | | | | | | | | | results | | | | | | | | | are to | | | | | | | | | be used | | | | | | | | | only for | | | | | | | | | medical | | | | | | | | | | | | | | | | | | purposes | | | | | | | | | . | | | | | | | | | Confirma | | | | | | | | | tion of | | | | | | | | | a | | | | | | | | | positive | | | | | | | | | | | | | | | | | | screenin | | | | | | | | | g result | | | | | | | | | is | | | | | | | | | availabl | | | | | | | | | e upon | | | | | | | | | request. | | | | | | | | | Screen | | | | | | | | | evaluate | | | | | | | | | s for | | | | | | | | | the | | | | | | | | | presence | | | | | | | | | of | | | | | | | | | Benzodia | | | | | | | | | zepine | | | | | | | | | at a | | | | | | | | | threshol | | | | | | | | | d | | | | | | | | | concentr | | | | | | | | | ation of | | | | | | | | | 150 | | | | | | | | | ng/mL. | + + + +-------+ + + + + | Urine | Not | | | | 01/02/18 | 01/02/18 | Unconfir | | Cocaine | Detected | | | | 3:44pm | 4:28pm | med | | Screen | | | | | | | screenin | | | | | | | | | g | | | | | | | | | results | | | | | | | | | are to | | | | | | | | | be used | | | | | | | | | only for | | | | | | | | | medical | | | | | | | | | | | | | | | | | | purposes | | | | | | | | | . | | | | | | | | | Confirma | | | | | | | | | tion of | | | | | | | | | a | | | | | | | | | positive | | | | | | | | | | | | | | | | | | screenin | | | | | | | | | g result | | | | | | | | | is | | | | | | | | | availabl | | | | | | | | | e upon | | | | | | | | | request. | | | | | | | | | Screen | | | | | | | | | | | | | | | | | | evaluate | | | | | | | | | s forthe | | | | | | | | | | | | | | | | | | presence | | | | | | | | | of | | | | | | | | | Cocaine | | | | | | | | | at a | | | | | | | | | threshol | | | | | | | | | d | | | | | | | | | concentr | | | | | | | | | ation of | | | | | | | | | 150 | | | | | | | | | ng/mL. | + + + +-------+ + + + + | Urine | Not | | | | 01/02/18 | 01/02/18 | Unconfir | | Methadon | Detected | | | | 3:44pm | 4:28pm | med | | e Screen | | | | | | | screenin | | | | | | | | | g | | | | | | | | | results | | | | | | | | | are to | | | | | | | | | be used | | | | | | | | | only | | | | | | | | | formedic | | | | | | | | | al | | | | | | | | | purposes | | | | | | | | | . | | | | | | | | | Confirma | | | | | | | | | tion of | | | | | | | | | a | | | | | | | | | positive | | | | | | | | | | | | | | | | | | screenin | | | | | | | | | gresult | | | | | | | | | is | | | | | | | | | availabl | | | | | | | | | e upon | | | | | | | | | request. | | | | | | | | | Screen | | | | | | | | | evaluate | | | | | | | | | s forthe | | | | | | | | | | | | | | | | | | presence | | | | | | | | | of | | | | | | | | | Methadon | | | | | | | | | e at a | | | | | | | | | threshol | | | | | | | | | d | | | | | | | | | concentr | | | | | | | | | ationof | | | | | | | | | 200 | | | | | | | | | ng/mL. | + + + +-------+ + + + + | Urine | Not | | | | 01/02/18 | 01/02/18 | Unconfir | | Opiates | Detected | | | | 3:44pm | 4:28pm | med | | Screen | | | | | | | screenin | | | | | | | | | g | | | | | | | | | results | | | | | | | | | are to | | | | | | | | | be used | | | | | | | | | only for | | | | | | | | | medical | | | | | | | | | | | | | | | | | | purposes | | | | | | | | | . | | | | | | | | | Confirma | | | | | | | | | tion of | | | | | | | | | a | | | | | | | | | positive | | | | | | | | | | | | | | | | | | screenin | | | | | | | | | g result | | | | | | | | | is | | | | | | | | | availabl | | | | | | | | | e upon | | | | | | | | | request. | | | | | | | | | Screen | | | | | | | | | | | | | | | | | | evaluate | | | | | | | | | s forthe | | | | | | | | | | | | | | | | | | presence | | | | | | | | | of | | | | | | | | | Opiates | | | | | | | | | at a | | | | | | | | | threshol | | | | | | | | | d | | | | | | | | | concentr | | | | | | | | | ationof | | | | | | | | | 100 | | | | | | | | | ng/mL. | + + + +-------+ + + + + | Urine | Not | | | | 01/02/18 | 01/02/18 | Unconfir | | Phencycl | Detected | | | | 3:44pm | 4:28pm | med | | idine | | | | | | | screenin | | Screen | | | | | | | g | | | | | | | | | results | | | | | | | | | are to | | | | | | | | | be used | | | | | | | | | only for | | | | | | | | | medical | | | | | | | | | | | | | | | | | | purposes | | | | | | | | | . | | | | | | | | | Confirma | | | | | | | | | tion of | | | | | | | | | a | | | | | | | | | positive | | | | | | | | | | | | | | | | | | screenin | | | | | | | | | g result | | | | | | | | | is | | | | | | | | | availabl | | | | | | | | | e upon | | | | | | | | | request. | | | | | | | | | Screen | | | | | | | | | | | | | | | | | | evaluate | | | | | | | | | s for | | | | | | | | | theprese | | | | | | | | | nce of | | | | | | | | | Phencycl | | | | | | | | | idine at | | | | | | | | | a | | | | | | | | | threshol | | | | | | | | | d | | | | | | | | | concentr | | | | | | | | | ationof | | | | | | | | | 25 | | | | | | | | | ng/mL. | + + + +-------+ + + + + | Urine | Not | | | | 01/02/18 | 01/02/18 | Unconfir | | Cannabin | Detected | | | | 3:44pm | 4:28pm | med | | oids | | | | | | | screenin | | Screen | | | | | | | g | | | | | | | | | results | | | | | | | | | are to | | | | | | | | | be used | | | | | | | | | only for | | | | | | | | | medical | | | | | | | | | | | | | | | | | | purposes | | | | | | | | | . | | | | | | | | | Confirma | | | | | | | | | tion of | | | | | | | | | a | | | | | | | | | positive | | | | | | | | | | | | | | | | | | screenin | | | | | | | | | g result | | | | | | | | | is | | | | | | | | | availabl | | | | | | | | | e upon | | | | | | | | | request. | | | | | | | | | Screen | | | | | | | | | | | | | | | | | | evaluate | | | | | | | | | s for | | | | | | | | | theprese | | | | | | | | | nce of | | | | | | | | | Cannabin | | | | | | | | | oids at | | | | | | | | | a | | | | | | | | | threshol | | | | | | | | | d | | | | | | | | | concentr | | | | | | | | | ation of | | | | | | | | | 50 | | | | | | | | | ng/mL. | + + + +-------+ + + + + | Ur | DETECTED | | * | | 01/02/18 | 01/02/18 | Unconfir | | Tricycli | | | | | 3:44pm | 4:28pm | med | | c | | | | | | | screenin | | Antidepr | | | | | | | g | | essants | | | | | | | results | | Screen | | | | | | | are to | | | | | | | | | be used | | | | | | | | | only for | | | | | | | | | medical | | | | | | | | | | | | | | | | | | purposes | | | | | | | | | . | | | | | | | | | Confirma | | | | | | | | | tion of | | | | | | | | | a | | | | | | | | | positive | | | | | | | | | | | | | | | | | | screenin | | | | | | | | | g result | | | | | | | | | is | | | | | | | | | availabl | | | | | | | | | e upon | | | | | | | | | request. | | | | | | | | | Screen | | | | | | | | | | | | | | | | | | evaluate | | | | | | | | | s for | | | | | | | | | the | | | | | | | | | presence | | | | | | | | | of | | | | | | | | | Tricycli | | | | | | | | | c | | | | | | | | | Antidepr | | | | | | | | | essants | | | | | | | | | at a | | | | | | | | | threshol | | | | | | | | | d | | | | | | | | | concentr | | | | | | | | | ation of | | | | | | | | | 300 | | | | | | | | | ng/mL. | + + + +-------+ + + + + | Urine | Not | | | | 01/02/18 | 01/02/18 | Unconfir | | Buprenor | Detected | | | | 3:44pm | 4:28pm | med | | phine | | | | | | | screenin | | Screen | | | | | | | g | | | | | | | | | results | | | | | | | | | are to | | | | | | | | | be used | | | | | | | | | only | | | | | | | | | formedic | | | | | | | | | al | | | | | | | | | purposes | | | | | | | | | . | | | | | | | | | Confirma | | | | | | | | | tion of | | | | | | | | | a | | | | | | | | | positive | | | | | | | | | | | | | | | | | | screenin | | | | | | | | | gresult | | | | | | | | | is | | | | | | | | | availabl | | | | | | | | | e upon | | | | | | | | | request. | | | | | | | | | Screen | | | | | | | | | | | | | | | | | | evaluate | | | | | | | | | s for | | | | | | | | | theprese | | | | | | | | | nce of | | | | | | | | | Buprenor | | | | | | | | | phine | | | | | | | | | (BUP) at | | | | | | | | | a | | | | | | | | | threshol | | | | | | | | | d | | | | | | | | | concentr | | | | | | | | | ationof | | | | | | | | | 10 | | | | | | | | | ng/mL. | + + + +-------+ + + + + | Urine | Not | | | | 01/02/18 | 01/02/18 | Unconfir | | Oxycodon | Detected | | | | 3:44pm | 4:28pm | med | | e Screen | | | | | | | screenin | | | | | | | | | g | | | | | | | | | results | | | | | | | | | are to | | | | | | | | | be used | | | | | | | | | only | | | | | | | | | formedic | | | | | | | | | al | | | | | | | | | purposes | | | | | | | | | . | | | | | | | | | Confirma | | | | | | | | | tion of | | | | | | | | | a | | | | | | | | | positive | | | | | | | | | | | | | | | | | | screenin | | | | | | | | | gresult | | | | | | | | | is | | | | | | | | | availabl | | | | | | | | | e upon | | | | | | | | | request. | | | | | | | | | Screen | | | | | | | | | | | | | | | | | | evaluate | | | | | | | | | s for | | | | | | | | | theprese | | | | | | | | | nce of | | | | | | | | | Oxycodon | | | | | | | | | e at a | | | | | | | | | threshol | | | | | | | | | d | | | | | | | | | concentr | | | | | | | | | ation of | | | | | | | | | 100 | | | | | | | | | ng/mL. | + + + +-------+ + + + + | Urine | Not | | | | 01/02/18 | 01/02/18 | Unconfir | | Propoxyp | Detected | | | | 3:44pm | 4:28pm | med | | hene | | | | | | | screenin | | Screen | | | | | | | g | | | | | | | | | results | | | | | | | | | are to | | | | | | | | | be used | | | | | | | | | only | | | | | | | | | formedic | | | | | | | | | al | | | | | | | | | purposes | | | | | | | | | . | | | | | | | | | Confirma | | | | | | | | | tion of | | | | | | | | | a | | | | | | | | | positive | | | | | | | | | | | | | | | | | | screenin | | | | | | | | | gresult | | | | | | | | | is | | | | | | | | | availabl | | | | | | | | | e upon | | | | | | | | | request. | | | | | | | | | Screen | | | | | | | | | | | | | | | | | | evaluate | | | | | | | | | s for | | | | | | | | | theprese | | | | | | | | | nce of | | | | | | | | | Propoxyp | | | | | | | | | hene at | | | | | | | | | a | | | | | | | | | threshol | | | | | | | | | d | | | | | | | | | concentr | | | | | | | | | ation of | | | | | | | | | 300 | | | | | | | | | ng/mL. | + + + +-------+ + + + + Procedures No Known History of Procedures. Encounters + + + + + + | Encounter | Location | Arrival/Admit | Discharge/Depar | Attending | | | | Date | t Date | Provider | + + + + + + | Discharged | [facility] | 01/02/18 | 01/04/18 | Quyn[facility] | | Inpatient | [facility] | 12:34pm | 12:43pm | Garry London MD | + + + + + + + + + | Encounter Diagnosis | Onset Date | + + + | Depression | | + + +"
--- OUTSIDE RECORDS SUMMARY | ~2018-11-23 | XMS | Encounter Summary ---
Demographics + + + | Address | [address] | | | [place] [address] | + + + | Home Phone | [phone] | + + + | Preferred Language | Unknown | + + + | Marital Status | Never | + + + | Taoist Affiliation | Unknown | + + + | Race | White | + + + | Ethnic Group | Not or | + + + Author + + + | Author | | + + + | Organization | | + + + | Address | [address] | | | [place] [address] | + + + | Phone | [phone] | + + + Care Team Providers + +------+ + | Care Vault Teller Name | Role | Phone | + +------+ + | Dr. Family Knight | 3 | Unavailable | | [place] | | | + +------+ + | Isamar Shelton MD | 3 | Unavailable | + +------+ + | Dr. Family Knight | 4 | Unavailable | | [place] | | | + +------+ + Reason [...] | Discussion Note | + + | [id number] | + + Plan of Care + + + + + | Reminders | | | Provider | | | | | | + + + + + | Appointments | Office Visit 30 | on or around | Leonidas Marcano MD | | | | 11/06/2017 | | + + + + + | | Establish Care 40 | 11/27/2017 9:20AM | Isamar Shelton, | | | | | | + [...] | | +---------+--------+ + + +--------+-------+ | [id number] | RxNorm | Adderall | Confusion | Moderate | Active | | | | | | | to Severe | | | +---------+--------+ + + +--------+-------+ | [id number] | RxNorm | Martorell | | | Active | | +---------+--------+ [...] | | +---------+--------+ + + +--------+-------+ | [id number] | RxNorm | Sulfadiazi | | | [...] 09/12/2017 0.5 mL | + + | IPV | + + | 04/23/2002 1 | + + | 09/12/2017 0.5 mL | + + | meningococcal MCV4O | + + | 09/12/2017 0.5 mL [...] 10/05/2011 1 | + + | 09/12/2017 0.5 mL | + + | varicella | + + | 03/10/2000 1 | + + | 01/01/2014 1 | + + Social History + + +---+ | Smoking Status | Never Smoker | | + + +---+ Past Encounters + + | 09/12/2017 | | Low Back Pain; Knee Pain | | ASHOK Juarez: [address] [address], [place]. | + + History of Present [...]
--- OUTSIDE RECORDS SUMMARY | ~2018-11-23 | XMS | Continuity of Care Document ---
Demographics + + + | Address | [address] | | | [place] [address] | + + + | Home Phone | | + + + | Preferred Language | Unknown | + + + | Marital Status | Unknown | + + + | Buddhist Affiliation | Unknown | + + + | Race | Unknown | + + + | Ethnic Group | Unknown | + + + Author + + + | Author | [facility] | + + + | Organization | [facility] | + + + | Address | [address] | | | [place] [address] | + + + | Phone | | + + + Support + + + + + | Name | Relationship | Address | Phone | + + + + + | DAYSI Reaves | Caregiver | Emergency Medicine | | | [place] | | [place] [address] | | + + + + + | SHU GREEN PCP | Caregiver | [address] | | | | | [place], [place] | | | | | [address] | | + + + + + | YUNIEL VILLAREAL | [facility] | [address] | | | | | [place] [address] | | + + + + + Care Team Providers + + + + | Care Pole Incisor Operator Name | Role | Phone | + + + + | SHU GREEN | Nitin | | + + + + Insurance Providers + + + + + | Payer Name | Policy Number | Subscriber Name | Relationship | + + + + + | [employer] | [id number] | KEVIN VILLAREAL | SELF | + + + + + Chief Complaint and Reason for Visit + + + | 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 | + + + Problems Active Medical Problems + + + +--------+ | Problem | Onset Date | Recorded Date | Status | + + + +--------+ | Ankle sprain | Unknown | 01/15/17 | Active | + + + +--------+ | Finger laceration | Unknown | 11/05/17 | Active | + + + +--------+ Medications Current Home Medications + +-------+-------+-------+ + + +--------+ | Medicati | Dose | Units | Route | Directio | Days/Qty | Instruct | Start | | on | | | | ns | | ions | Date | + +-------+-------+-------+ + + +--------+ | Amantadi | 50 [...] | | | | | | + +-------+-------+-------+ + + +--------+ | Cholecal | 2,000 | UNIT | ORAL | Daily | | | | | ciferol | | | | | | | | | (VITAMIN | | | | | | | | | D3) | | | | | | | | | 1,000 | | | | | | | | | UNIT | | | | | | | | | TABLET | | | | | | | | + +-------+-------+-------+ + + +--------+ | Clonidin | 0.2 | MG | ORAL | At | | | | | e | | | | Bedtime | | | | | (Catapre | | | | | | | | | s) 0.2 | | | | | | | | | MG TAB | | | | | | | | + +-------+-------+-------+ + + +--------+ | Clonidin | 0.1 | MG | ORAL | Daily | | | | | e Hcl | | | | | | | | | (Catapre | | | | | | | | | s) 0.1 | | | | | | | | | MG TAB | | | | | | | | + +-------+-------+-------+ + + +--------+ | Melatoni | 6 | MG | ORAL | At | | | | | n 3 MG | | | | Bedtime | | | | | TAB | | | | | | | | + +-------+-------+-------+ + + +--------+ | Quetiapi | 100 [...] | | | | | | + +-------+-------+-------+ + + +--------+ | Quetiapi | 400 [...] | | | | | | + +-------+-------+-------+ + + +--------+ | Sertrali | 50 | MG | ORAL | Daily | | | | | ne Hcl | | | | | | | | | (Zoloft) | | | | | | | | | 50 MG | | | | | | | | | TAB | | | | | | | | + +-------+-------+-------+ + + +--------+ Past Home Medications + + + + + | Medication | Directions | Ordered | Status | + + + + + | Aripiprazole | At Bedtime | Unknown | Discontinued | | (Abilifdominic) 10 Mg Tab | | | | [...] + + + | Discharge Date | 11/05/17 | + + + | Disposition | HOME | + + + | Condition at Discharge | Good | + + + | Instructions/Education Provided | Laceration Care, Adult, [id number] | + + + | Prescriptions | See Medications Section | + + + | Referrals | [facility] - | + + + | Additional Instructions/Education | You need to have sutures/kristy out in 10 | | | days. Keep wound clean & check frequently | | | and monitor for redness, increased warmth | | | orincreased pain. Return to Emergency | | | Department or follow up with your Primary | | | Provider forremoval of kristy/sutures. | | |removal of kristy/sutures. | + + + Functional Status No functional status results. Allergies, Adverse Reactions, Alerts + +---------+ + +--------+ + | Allergen | Type | Severity | Reaction | Status | Last Updated | + +---------+ + +--------+ + | Sulfa | Allergy | Mild | | Active | 11/05/17 | | (Sulfonamide | | | | | | | | | | | | | | Antibiotics) | | | | | | + +---------+ + +--------+ + | caffeine | Allergy | Unknown | | Active | 11/05/17 | + +---------+ + +--------+ + | mallorie | Allergy | Unknown | | Active | 11/05/17 | + +---------+ + +--------+ + Immunizations No Known History of Immunizations. Vital Signs + + + + | Vital Reading | Collection Date/Time | Result | + + + + | Blood Pressure | 11/05/17 9:04pm | 142/71 | + + + + | Temperature | 11/05/17 9:04pm | 97 F | + + + + | Temperature Source | 11/05/17 9:04pm | Temporal | + + + + | Respiratory Rate | 11/05/17 9:04pm | 18 | + + + + | Pulse Rate | 11/05/17 9:04pm | 115 | + + + + | Bedside Pulse Oximetry | 11/05/17 9:04pm | 100 | + + + + | Height | 11/05/17 9:04pm | 6 ft 4 in | + + + + | Height | 18 9:04pm | 193.04 cm | + + + + | Weight | 18 9:04pm | 170 lb | + + + + | Weight | 18 9:04pm | 77.11 kg | + + + + | Body Mass Index | 18 9:04pm | 20.7 kg/m2 | + + + + Results No known relevant diagnostic tests, laboratory data and/or discharge summary. Procedures No Known History of Procedures. Encounters + + + + + + | Encounter | Location | Arrival/Admit | Discharge/Depar | Attending | | | | Date | t Date | Provider | + + + + + + | Departed | [facility] | 11/05/17 8:40pm | 11/05/17 | DAYSI Reaves | | Emergency | [facility] | | 10:34pm | [place] | + + + + + + + + + | Encounter Diagnosis | Onset Date | + + + | Finger laceration | | + + +"
--- OUTSIDE RECORDS SUMMARY | ~2018-11-23 | XMS | Encounter Summary ---
Demographics + + + | Address | [address] | | | [place] [address] | + + + | Home Phone | [phone] | + + + | Preferred Language | Unknown | + + + | Marital Status | Never | + + + | Cheondoism Affiliation | Unknown | + + + | Race | White | + + + | Ethnic Group | Not or | + + + Author + + + | Author | | + + + | Organization | | + + + | Address | [address] | | | [place] [address] | + + + | Phone | [phone] | + + + Care Team Providers + +------+ + | Care Movie Shot Camera Operator Name | Role | Phone | + +------+ + | Dr. Family Knight | 3 | Unavailable | | [facility] | | | + +------+ + | Isamar Shelton MD | 3 | Unavailable | + +------+ + | Dr. Family Knight | 4 | Unavailable | | [facility] | | | + +------+ + Reason for Visit + + | MRI Results; Hospital Follow Up | + + Instructions + + | 1. Unable to control anger | + + | psychiatry referral | + + + + | Discussion Note | + + | [id number], greater than 50% of the visit was spent counseling. | + + Patient educational handouts: No information available. Plan of Care + + + + + | Reminders | | | Provider | | | | | | + + + + + | Appointments | Office Visit 75 | 03/06/2018 1:15PM | Leonidas Marcano MD | + + + + + | | Office Visit 20 | 05/28/2018 1:20PM | Isaamr Shelton, | | | | | MD | + + + + + | Lab | None recorded. | | | + + + + + | Referral | Psychiatry Referral | 01/30/2018 | Leonidas Marcano | + + + + + | [...] + + + + + + | amantadine HCl 100 mg capsule | | | TAKE ONE CAPSULE BY MOUTH TWICE DAILY | | + + + | Ciprodex 0.3 %-0.1 % ear drops,suspension | | | INSTILL 4 DROPS INTO AFFECTED EAR(S) BY | | | OTIC ROUTE 2 TIMES PER DAY FOR 7 DAYS | | + + + | clonidine HCl 0.1 mg tablet | 11/27/2017 | | TAKE ONE TABLET BY MOUTH IN THE MORNING | | + + + | clonidine HCl 0.2 mg tablet | | | TAKE ONE TABLET BY MOUTH AT BEDTIME | | + + + | melatonin | | | 3mg 2 tablets at bedtime | | + + + | paroxetine 20 mg tablet | | | TAKE ONE TABLET BY MOUTH ONE TIME DAILY | | + + + | quetiapine ER 400 mg tablet,extended | | | release 24 hr TAKE ONE TABLET BY MOUTH AT | | | BEDTIME | | + + + | quetiapine ER 50 mg tablet,extended | | | release 24 hr TAKE TWO TABLETS BY MOUTH | | | DAILY AT BEDTIME | | + + + | sertraline 50 mg tablet | | | Take 50 mg every day by oral route. | | + + + | Ventolin HFA 90 mcg/actuation aerosol | | | inhaler inhale 2 puffs by mouth every 4 | | | hours if needed | | + + + | Vitamin D3 2,000 unit capsule | | | TAKE ONE CAPSULE BY MOUTH ONE TIME DAILY | | + + + Medications Administered None recorded. Vitals + + + + + | Height | Weight | BMI | Blood Pressure | + + + + + | 6 ft 2 in | 168 lbs | 21.6 kg/m2 | 128/84 mm[Hg] | + + + + + Lab Results +-------+-------+-------+-------+-------+-------+-------+-------+-------+-------+-------+ | Date | Name | Speci | Resul | Inter | Descr | Value | Range | Statu | Addre | | | | | men | t | preta | iptio | | | s | ss | | | | | | | tion | n | | | | | | | | | | | | | | | | | | | | | | | | | | | | | | | | | | | | | | | | | | | | | | | | | | | | | | +-------+-------+-------+-------+-------+-------+-------+-------+-------+-------+-------+ +--------+--------+---+--------+---+--------+--------+--------+-------+--------+ | 05/09/ | CBC W/ | | Normal | | Wbc | 6.57 | 4.00-1 | Final | [facility] | | 2018 | Auto | | | | | K/mm3 | 1.30 | | [facility] | | | Diff | | | | | | K/mm3 | | l | | | | | | | | | | | Center | | | | | | | | | | | | | | | | | | | | | | ([facility]) | | | | | | | | | | | : [address] | | | | | | | | | | | | | | | | | | | | | [address] | | | | | | | | | | | [address] | | | | | | | | | | | [address], | | | | | | | | | | | [place] | | | | | | | | | | | rg | +--------+--------+---+--------+---+--------+--------+--------+-------+--------+ | | | | Normal | | Rbc | 5.47 | 4.30-5 | Final | [facility] | | | | | | | | M/mm3 | .90 | | [facility] | | | | | | | | | M/mm3 | | l | | | | | | | | | | | Center | | | | | | | | | | | | | | | | | | | | | | (Main) | | | | | | | | | | | : [address] | | | | | | | | | | | | | | | | | | | | | | [address] | | | | | | | | | | | t | | | | | | | | | | | [address], | | | | | | | | | | | [place] | | | | | | | | | | | rg | +--------+--------+---+--------+---+--------+--------+--------+-------+--------+ | | | | Normal | | Hgb | 15.5 | 13.5-1 | Final | [facility] | | | | | | | | g/dL | 7.5 | | [facility] | | | | | | | | | g/dL | | l | | | | | | | | | | | Center | | | | | | | | | | | | | | | | | | | | | | (Main) | | | | | | | | | | | : [address] | | | | | | | | | | | | | | | | | | | | | | [address] | | | | | | | | | | | [address] | | | | | | | | | | | [address], | | | | | | | | | | | [place] | | | | | | | | | | | rg | +--------+--------+---+--------+---+--------+--------+--------+-------+--------+ | | | | Normal | | Hct | 46.8 % | 37.0-5 | Final | [facility] | | | | | | | | | 3.0 % | | [facility] | | | | | | | | | | | l | | | | | | | | | | | Center | | | | | | | | | | | | | | | | | | | | | | (Main) | | | | | | | | | | | : [address] | | | | | | | | | | | | | | | | | | | | | | [address] | | | | | | | | | | | t | | | | | | | | | | | [address], | | | | | | | | | | | [place] | | | | | | | | | | | rg | +--------+--------+---+--------+---+--------+--------+--------+-------+--------+ | | | | Normal | | Mcv | 86 fL | 80-100 | Final | [facility] | | | | | | | | | fL | | [facility] | | | | | | | | | | | l | | | | | | | | | | | Center | | | | | | | | | | | | | | | | | | | | | | (Main) | | | | | | | | | | | : [address] | | | | | | | | | | | | | | | | | | | | | | [address] | | | | | | | | | | | [address] | | | | | | | | | | | [address], | | | | | | | | | | | [place] | | | | | | | | | | | rg | +--------+--------+---+--------+---+--------+--------+--------+-------+--------+ | | | | Normal | | Mch | 28.3 | 26.0-3 | Final | [facility] | | | | | | | | pg | 4.0 pg | | [facility] | | | | | | | | | | | l | | | | | | | | | | | Center | | | | | | | | | | | | | | | | | | | | | | (Main) | | | | | | | | | | | : [address] | | | | | | | | | | | | | | | | | | | | | | [address] | | | | | | | | | | | t | | | | | | | | | | | [address], | | | | | | | | | | | [place] | | | | | | | | | | | rg | +--------+--------+---+--------+---+--------+--------+--------+-------+--------+ | | | | Normal | | Mchc | 33.1 | 31.5-3 | Final | [facility] | | | | | | | | g/dL | 6.5 | | [facility] | | | | | | | | | g/dL | | l | | | | | | | | | | | Center | | | | | | | | | | | | | | | | | | | | | | (Main) | | | | | | | | | | | : [address] | | | | | | | | | | | | | | | | | | | | | | [address] | | | | | | | | | | | t | | | | | | | | | | | [address], | | | | | | | | | | | [place] | | | | | | | | | | | rg | +--------+--------+---+--------+---+--------+--------+--------+-------+--------+ | | | | Normal | | Rdw | 40.4 | 35.1-4 | Final | [facility] | | | | | | | Sd | fL | 6.3 fL | | [facility] | | | | | | | | | | | l | | | | | | | | | | | Center | | | | | | | | | | | | | | | | | | | | | | (Main) | | | | | | | | | | | : [address] | | | | | | | | | | | | | | | | | | | | | | [address] | | | | | | | | | | | t | | | | | | | | | | | [address], | | | | | | | | | | | [place] | | | | | | | | | | | rg | +--------+--------+---+--------+---+--------+--------+--------+-------+--------+ | | | | Normal | | Rdw | 12.9 % | 11.7-1 | Final | [facility] | | | | | | | Cv | | 4.2 % | | [facility] | | | | | | | | | | | l | | | | | | | | | | | Center | | | | | | | | | | | | | | | | | | | | | | (Main) | | | | | | | | | | | : [address] | | | | | | | | | | | | | | | | | | | | | [address] | | | | | | | | | | | [address] | | | | | | | | | | | [address], | | | | | | | | | | | [place] | | | | | | | | | | | rg | +--------+--------+---+--------+---+--------+--------+--------+-------+--------+ | | | | Normal | | Plt | 175 | 150-40 | Final | [facility] | | | | | | | | K/mm3 | 0 | | [facility] | | | | | | | | | K/mm3 | | l | | | | | | | | | | | Center | | | | | | | | | | | | | | | | | | | | | | (Main) | | | | | | | | | | | : [address] | | | | | | | | | | | | | | | | | | | | | | [address] | | | | | | | | | | | t | | | | | | | | | | | [address], | | | | | | | | | | | [place] | | | | | | | | | | | rg | +--------+--------+---+--------+---+--------+--------+--------+-------+--------+ | | | | Normal | | Mpv | 11.1 | 9.1-12 | Final | [facility] | | | | | | | | fL | .4 fL | | [facility] | | | | | | | | | | | l | | | | | | | | | | | Center | | | | | | | | | | | | | | | | | | | | | | (Main) | | | | | | | | | | | : [address] | | | | | | | | | | | | | | | | | | | | | | [address] | | | | | | | | | | | t | | | | | | | | | | | [address], | | | | | | | | | | | [place] | | | | | | | | | | | rg | +--------+--------+---+--------+---+--------+--------+--------+-------+--------+ | | | | Normal | | Diff | auto | | Final | [facility] | | | | | | | Type | | | | [facility] | | | | | | | | | | | l | | | | | | | | | | | Center | | | | | | | | | | | | | | | | | | | | | | (Main) | | | | | | | | | | | : [address] | | | | | | | | | | | | | | | | | | | | | | [address] | | | | | | | | | | | t | | | | | | | | | | | [address], | | | | | | | | | | | [place] | | | | | | | | | | | rg | +--------+--------+---+--------+---+--------+--------+--------+-------+--------+ | | | | High | | Neut | 74 % | 41-73 | Final | [facility] | | | | | | | % | | % | | [facility] | | | | | | | | | | | l | | | | | | | | | | | Center | | | | | | | | | | | | | | | | | | | | | | (Main) | | | | | | | | | | | : [address] | | | | | | | | | | | | | | | | | | | | | | [address] | | | | | | | | | | | t | | | | | | | | | | | [address], | | | | | | | | | | | [place] | | | | | | | | | | | rg | +--------+--------+---+--------+---+--------+--------+--------+-------+--------+ | | | | Low | | Lymph | 19 % | 21-46 | Final | [facility] | | | | | | | % | | % | | [facility] | | | | | | | | | | | l | | | | | | | | | | | Center | | | | | | | | | | | | | | | | | | | | | | (Main) | | | | | | | | | | | : [address] | | | | | | | | | | | | | | | | | | | | | | [address] | | | | | | | | | | | t | | | | | | | | | | | [address], | | | | | | | | | | | [place] | | | | | | | | | | | rg | +--------+--------+---+--------+---+--------+--------+--------+-------+--------+ | | | | Normal | | Pepin | 6 % | 4-13 % | Final | [facility] | | | | | | | % | | | | [facility] | | | | | | | | | | | l | | | | | | | | | | | Center | | | | | | | | | | | | | | | | | | | | | | (Main) | | | | | | | | | | | : [address] | | | | | | | | | | | | | | | | | | | | | | [address] | | | | | | | | | | | t | | | | | | | | | | | [address], | | | | | | | | | | | [place] | | | | | | | | | | | rg | +--------+--------+---+--------+---+--------+--------+--------+-------+--------+ | | | | Normal | | Eosin | 1 % | 0-6 % | Final | [facility] | | | | | | | % | | | | [facility] | | | | | | | | | | | l | | | | | | | | | | | Center | | | | | | | | | | | | | | | | | | | | | | (Main) | | | | | | | | | | | : [address] | | | | | | | | | | | | | | | | | | | | | | [address] | | | | | | | | | | | t | | | | | | | | | | | [address], | | | | | | | | | | | [place] | | | | | | | | | | | rg | +--------+--------+---+--------+---+--------+--------+--------+-------+--------+ | | | | Normal | | Baso | 0 % | 0-2 % | Final | [facility] | | | | | | | % | | | | [facility] | | | | | | | | | | | l | | | | | | | | | | | Center | | | | | | | | | | | | | | | | | | | | | | (Main) | | | | | | | | | | | : [address] | | | | | | | | | | | | | | | | | | | | [address] | | | | | | | | | | | [address] | | | | | | | | | | | [address], | | | | | | | | | | | [place] | | | | | | | | | | | rg | +--------+--------+---+--------+---+--------+--------+--------+-------+--------+ | | | | Normal | | Imm | 0 % | 0-1 % | Final | [facility] | | | | | | | Grans | | | | [facility] | | | | | | | % | | | | l | | | | | | | | | | | Center | | | | | | | | | | | | | | | | | | | | | | (Main) | | | | | | | | | | | : [address] | | | | | | | | | | | | | | | | | | | | | | [address] | | | | | | | | | | | t | | | | | | | | | | | [address], | | | | | | | | | | | [place] | | | | | | | | | | | rg | +--------+--------+---+--------+---+--------+--------+--------+-------+--------+ | | | | Normal | | Nrbc | 0.0 | 0.0-0. | Final | [facility] | | | | | | | | /100 | 2 /100 | | [facility] | | | | | | | | WBC | WBC | | l | | | | | | | | | | | Center | | | | | | | | | | | | | | | | | | | | | | (Main) | | | | | | | | | | | : [address] | | | | | | | | | | | | | | | | | | | | | | [address] | | | | | | | | | | | t | | | | | | | | | | | [address], | | | | | | | | | | | [place] | | | | | | | | | | | rg | +--------+--------+---+--------+---+--------+--------+--------+-------+--------+ | | | | Normal | | Abs | 4.83 | 1.96-9 | Final | [facility] | | | | | | | Neut | K/mm3 | .15 | | [facility] | | | | | | | | | K/mm3 | | l | | | | | | | | | | | Center | | | | | | | | | | | | | | | | | | | | | | (Main) | | | | | | | | | | | : [address] | | | | | | | | | | | | | | | | | | | | | | [address] | | | | | | | | | | | t | | | | | | | | | | | [address], | | | | | | | | | | | [place] | | | | | | | | | | | rg | +--------+--------+---+--------+---+--------+--------+--------+-------+--------+ | | | | Normal | | Abs | 1.23 | 0.84-5 | Final | [facility] | | | | | | | Lymph | K/mm3 | .20 | | [facility] | | | | | | | | | K/mm3 | | l | | | | | | | | | | | Center | | | | | | | | | | | | | | | | | | | | | | (Main) | | | | | | | | | | | : [address] | | | | | | | | | | | | | | | | | | | | | | [address] | | | | | | | | | | | t | | | | | | | | | | | [address]kw[address], | | | | | | | | | | | [place] | | | | | | | | | | | rg | +--------+--------+---+--------+---+--------+--------+--------+-------+--------+ | | | | Normal | | Abs | 0.38 | 0.16-1 | Final | [facility] | | | | | | | Pepin | K/mm3 | .47 | | [facility] | | | | | | | | | K/mm3 | | l | | | | | | | | | | | Center | | | | | | | | | | | | | | | | | | | | | | (Main) | | | | | | | | | | | : [address] | | | | | | | | | | | | | | | | | | | | | | [address] | | | | | | | | | | | t | | | | | | | | | | | [address], | | | | | | | | | | | [place] | | | | | | | | | | | rg | +--------+--------+---+--------+---+--------+--------+--------+-------+--------+ | | | | Normal | | Abs | 0.09 | 0.00-0 | Final | [facility] | | | | | | | Eosin | K/mm3 | .68 | | [facility] | | | | | | | | | K/mm3 | | l | | | | | | | | | | | Center | | | | | | | | | | | | | | | | | | | | | | (Main) | | | | | | | | | | | : [address] | | | | | | | | | | | | | | | | | | | | | | [address] | | | | | | | | | | | t | | | | | | | | | | | [address], | | | | | | | | | | | [place] | | | | | | | | | | | rg | +--------+--------+---+--------+---+--------+--------+--------+-------+--------+ | | | | Normal | | Abs | 0.02 | 0.00-0 | Final | [facility] | | | | | | | Baso | K/mm3 | .23 | | [facility] | | | | | | | | | K/mm3 | | l | | | | | | | | | | | Center | | | | | | | | | | | | | | | | | | | | | | (Main) | | | | | | | | | | | : [address] | | | | | | | | | | | | | | | | | | | | | | [address] | | | | | | | | | | | t | | | | | | | | | | | [address], | | | | | | | | | | | [place] | | | | | | | | | | | rg | +--------+--------+---+--------+---+--------+--------+--------+-------+--------+ | | | | Normal | | Abs | 0.02 | 0.00-0 | Final | [facility] | | | | | | | Imm | K/mm3 | .10 | | [facility] | | | | | | | Grans | | K/mm3 | | l | | | | | | | | | | | Center | | | | | | | | | | | | | | | | | | | | | | (Main) | | | | | | | | | | | : [address] | | | | | | | | | | | | | | | | | | | | | | [address] | | | | | | | | | | | t | | | | | | | | | | | [address], | | | | | | | | | | | [place] | | | | | | | | | | | rg | +--------+--------+---+--------+---+--------+--------+--------+-------+--------+ | | | | Normal | | Abs | 0.00 | 0.00-0 | Final | [facility] | | | | | | | NRBC | K/mm3 | .02 | | [facility] | | | | | | | | | K/mm3 | | l | | | | | | | | | | | Center | | | | | | | | | | | | | | | | | | | | | | (Main) | | | | | | | | | | | : [address] | | | | | | | | | | | | | | | | | | | | | | [address] | | | | | | | | | | | t | | | | | | | | | | | [address], | | | | | | | | | | | [place] | | | | | | | | | | | rg | +--------+--------+---+--------+---+--------+--------+--------+-------+--------+ | 05/09/ | Urinal | | Normal | | | voided | | Final | [facility] | | 2018 | ysis, | | | | Source | | | | [facility] | | | Reflex | | | | | | | | l | | | | | | | | | | | Center | | | Cultur | | | | | | | | | | | e | | | | | | | | (Main) | | | | | | | | | | | : [address] | | | | | | | | | | | | | | | | | | | | | | [address] | | | | | | | | | | | t | | | | | | | | | | | [address], | | | | | | | | | | | [place] | | | | | | | | | | | rg | +--------+--------+---+--------+---+--------+--------+--------+-------+--------+ | | | | Normal | | Color | yellow | P-yell | Final | [facility] | | | | | | | | | ow | | [facility] | | | | | | | | | | | l | | | | | | | | | | | Center | | | | | | | | | | | | | | | | | | | | | | (Main) | | | | | | | | | | | : [address] | | | | | | | | | | | | | | | | | | | | | | [address] | | | | | | | | | | | t | | | | | | | | | | | [address], | | | | | | | | | | | [place] | | | | | | | | | | | rg | +--------+--------+---+--------+---+--------+--------+--------+-------+--------+ | | | | Normal | | | clear | clear | Final | [facility] | | | | | | | Appear | | | | [facility] | | | | | | | ance | | | | l | | | | | | | | | | | Center | | | | | | | | | | | | | | | | | | | | | | (Main) | | | | | | | | | | | : [address] | | | | | | | | | | | | | | | | | | | | [address] | | | | | | | | | | [address] | | | | | | | | | | | [address], | | | | | | | | | | | [place] | | | | | | | | | | | rg | +--------+--------+---+--------+---+--------+--------+--------+-------+--------+ | | | | High | | Spec | 1.025 | 1.003- | Final | [facility] | | | | | | | Gravit | | 1.022 | | [facility] | | | | | | | y | | | | l | | | | | | | | | | | Center | | | | | | | | | | | | | | | | | | | | | | (Main) | | | | | | | | | | | : [address] | | | | | | | | | | | | | | | | | | | | | | [address] | | | | | | | | | | | t | | | | | | | | | | | [address], | | | | | | | | | | | [place] | | | | | | | | | | | rg | +--------+--------+---+--------+---+--------+--------+--------+-------+--------+ | | | | Normal | | Ph | 6.0 | 5.0-8. | Final | [facility] | | | | | | | | | 0 | | [facility] | | | | | | | | | | | l | | | | | | | | | | | Center | | | | | | | | | | | | | | | | | | | | | | (Main) | | | | | | | | | | | : [address] | | | | | | | | | | | | | | | | | | | | [address] | | | | | | | | | | | [address] | | | | | | | | | | | [address], | | | | | | | | | | | [place] | | | | | | | | | | | rg | +--------+--------+---+--------+---+--------+--------+--------+-------+--------+ | | | | Normal | | | neg | neg | Final | [facility] | | | | | | | Leukoc | | | | [facility] | | | | | | | yte | | | | l | | | | | | | Est | | | | Center | | | | | | | | | | | | | | | | | | | | | | (Main) | | | | | | | | | | | : [address] | | | | | | | | | | | | | | | | | | | | | | [address] | | | | | | | | | | | t | | | | | | | | | | | [address]kw[address], | | | | | | | | | | | [place] | | | | | | | | | | | rg | +--------+--------+---+--------+---+--------+--------+--------+-------+--------+ | | | | Normal | | | neg | neg | Final | [facility] | | | | | | | Nitrit | | | | [facility] | | | | | | | e | | | | l | | | | | | | | | | | Center | | | | | | | | | | | | | | | | | | | | | | (Main) | | | | | | | | | | | : [address] | | | | | | | | | | | | | | | | | | | | | | [address] | | | | | | | | | | | t | | | | | | | | | | | [address], | | | | | | | | | | | [place] | | | | | | | | | | | rg | +--------+--------+---+--------+---+--------+--------+--------+-------+--------+ | | | | Normal | | | neg | neg | Final | [facility] | | | | | | | Protei | | | | [facility]ica | | | | | | | n | | | | l | | | | | | | | | | | Center | | | | | | | | | | | | | | | | | | | | | | (Main) | | | | | | | | | | | : [address] | | | | | | | | | | | | | | | | | | | | | [address] | | | | | | | | | | | [address] | | | | | | | | | | | [address], | | | | | | | | | | | [place] | | | | | | | | | | | rg | +--------+--------+---+--------+---+--------+--------+--------+-------+--------+ | | | | Normal | | | neg | neg | Final | [facility] | | | | | | | Glucos | | | | Medica | | | | | | | e | | | | l | | | | | | | | | | | Center | | | | | | | | | | | | | | | | | | | | | | (Main) | | | | | | | | | | | : [address] | | | | | | | | | | | | | | | | | | | | | | [address] | | | | | | | | | | | [address] | | | | | | | | | | | [address], | | | | | | | | | | | [place] | | | | | | | | | | | rg | +--------+--------+---+--------+---+--------+--------+--------+-------+--------+ | | | | Normal | | | neg | neg | Final | [facility] | | | | | | | Ketone | | | | Medica | | | | | | | s | | | | l | | | | | | | | | | | Center | | | | | | | | | | | | | | | | | | | | | | ([place]) | | | | | | | | | | | : [address] | | | | | | | | | | | | | | | | | | | | | | [address] | | | | | | | | | | | [address] | | | | | | | | | | | [address], | | | | | | | | | | | [place] | | | | | | | | | | | rg | +--------+--------+---+--------+---+--------+--------+--------+-------+--------+ | | | | Normal | | | norm | normal | Final | [facility] | | | | | | | Urobil | | | | Medica | | | | | | | inogen | | | | l | | | | | | | | | | | Center | | | | | | | | | | | | | | | | | | | | | | ([place]) | | | | | | | | | | | : [address] | | | | | | | | | | | | | | | | | | | | | | [address] | | | | | | | | | | | [address] | | | | | | | | | | | [address], | | | | | | | | | | | [place] | | | | | | | | | | | rg | +--------+--------+---+--------+---+--------+--------+--------+-------+--------+ | | | | Normal | | | neg | neg | Final | [facility] | | | | | | | Biliru | | | | Medica | | | | | | | bin | | | | l | | | | | | | | | | | Center | | | | | | | | | | | | | | | | | | | | | | ([place]) | | | | | | | | | | | : [address] | | | | | | | | | | | | | | | | | | | | | | [address] | | | | | | | | | | | [address] | | | | | | | | | | | [address], | | | | | | | | | | | [place] | | | | | | | | | | | rg | +--------+--------+---+--------+---+--------+--------+--------+-------+--------+ | | | | Normal | | Blood | neg | neg | Final | [facility] | | | | | | | | | | | Medica | | | | | | | | | | | l | | | | | | | | | | | Center | | | | | | | | | | | | | | | | | | | | | | ([place]) | | | | | | | | | | | : [address] | | | | | | | | | | | | | | | | | | | | | | [address] | | | | | | | | | | | [address] | | | | | | | | | | | [address], | | | | | | | | | | | [place] | | | | | | | | | | | rg | +--------+--------+---+--------+---+--------+--------+--------+-------+--------+ | | | | Normal | | | no | no | Final | [facility] | | | | | | | Cultur | | | | Medica | | | | | | | ed ? | | | | l | | | | | | | | | | | Center | | | | | | | | | | | | | | | | | | | | | | ([place]) | | | | | | | | | | | : [address] | | | | | | | | | | | | | | | | | | | | | | [address] | | | | | | | | | | | [address] | | | | | | | | | | | [address], | | | | | | | | | | | [place] | | | | | | | | | | | rg | +--------+--------+---+--------+---+--------+--------+--------+-------+--------+ | 01/02/ | Amphet | | Normal | | | not | | Final | [facility] | | 2018 | amine, | | | | Amphet | detect | | | Medica | | | QN, | | | | amine | ed | | | l | | | Screen | | | | | | | | Center | | | , | | | | | | | | | | | Urine | | | | | | | | ([place]) | | | | | | | | | | | : [address] | | | | | | | | | | | | | | | | | | | | | | [address] | | | | | | | | | | | t | | | | | | | | | | | [address], | | | | | | | | | | | [place] | | | | | | | | | | | rg | +--------+--------+---+--------+---+--------+--------+--------+-------+--------+ | | | | Normal | | | not | | Final | [facility] | | | | | | | Metham | detect | | | Medica | | | | | | | phetam | ed | | | l | | | | | | | ine | | | | Center | | | | | | | | | | | | | | | | | | | | | | ([place]) | | | | | | | | | | | : [address] | | | | | | | | | | | | | | | | | | | | | | [address] | | | | | | | | | | | t | | | | | | | | | | | [address], | | | | | | | | | | | [place] | | | | | | | | | | | rg |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
--- OUTSIDE RECORDS SUMMARY | ~2018-11-23 | XMS | Encounter Summary ---
Demographics + + + | Address | [address] | | | [place] [address] | + + + | Home Phone | [phone] | + + + | Preferred Language | Unknown | + + + | Marital Status | Never | + + + | Mormon Affiliation | Unknown | + + + | Race | White | + + + | Ethnic Group | Not or | + + + Author + + + | Author | | + + + | Organization | | + + + | Address | [address] | | | [place] [address] | + + + | Phone | [phone] | + + + Care Team Providers + +------+ + | Care Electroplater Automatic Name | Role | Phone | + +------+ + | Isamar Shelton MD | 3 | Unavailable | + +------+ + Reason for Visit + + | Suture Removal | + + Instructions + + | 1. Ganglion cyst | + + | 2. Homeless | + + | 3. Methamphetamine intoxication | + + | 4. Anxiety state | + + + + | Discussion Note | + + | [phone] | + + Patient educational handouts: No information available. Plan of Care + + + + + | Reminders | | | Provider | | | | | | + + + + + | Appointments | Office Visit 20 | 08/14/2018 12:00PM | Isamar Shelton, | | | [...] + | 6 ft 2 in | 160 lbs 16 oz | 20.7 kg/m2 | 112/72 mm[Hg] | + + + + + Lab Results None recorded. Allergies +---------+--------+ + + +--------+-------+ | Code | Code | Name | Reaction | Severity | Status | Onset | | | System | | | | | | +---------+--------+ + + +--------+-------+ | [id number] | RxNorm | Adderall | Confusion | Moderate | Active | | | | | | | to Severe | | | +---------+--------+ + + +--------+-------+ | [id number] | RxNorm | [place] | | | Active | | +---------+--------+ + + +--------+-------+ | | | [place] | | | Active | | | [...] | | +---------+--------+ + + +--------+-------+ | 89751 | RxNorm | Sulfadiazi | | | [...] | 08/21/2017 | | + +--------+ +---+ | Methamphetamine | Active | 08/07/2018 | | | Intoxication | | | | + +--------+ +---+ Procedures None [...] + +---+ Past Encounters + ---+ | 08/07/2018Ganglion Cyst; Homeless; Methamphetamine Intoxication; Anxiety StateShelli | | Mary Shetlon MD: [address] [address], Ph. | |Isamar Shelton MD: [address] [address], Ph. [phone] | + ---+ | 07/31/2018Ganglion CystShelli Mary Shelton MD: [address], [place], [place] | | [address], Ph. | |Isamar Shelton MD: [address], [place] [address], Ph. [phone] | + ---+ | 07/24/2018Anxiety State; Attention Deficit Hyperactivity Disorder; Insomnia; | | Alcohol Syndrome; Major Depressive DisorderLeonidas Marcano MD: [address], | | [place] [address], Ph. | + ---+ History of Present Illness Note:James is a 18yo male here today with his mother for suture removal. His woun d is red and looks angry.<div>
</div><div>Pt is currently living on the streets as he has been unable to get into a penitentiary and his mother is growing increasingly frustrated with him as she does not know how to help him. He was admitted to the ER yesterday for methamphe tamine use. He states it was his first time using meth and the only reason he did it was bec ause his 2 year old son , however, his mother states that he never had a child. The pt's former girlfriend who is schizophrenic claims to have had a child fathered by the pt althou gh the pt never met this child. The girlfriend then proceeded to tell him yesterday that the child had just . </div><div>
</div><div>His mom is frustrated but is not enabling. She does not allow him to live with her. </div><div>
</div> Review of Systems + + + | | Moderate Male ROS | + + + | Reported By: | Patient | + + + | Constitutional: | Constitutional: no fever, no significant | | | weight loss/gain | + + + | ENMT: | Mouth/Throat: no sore throat. Nose: no | | | nose/sinus problems. Ears no ear pain, no | | | loss of hearing, no ringing in the ears | [...] Adult Exam-Male, General Adult | | | Exam, Psychiatric Exam | + + + | Reported By: | Patient | + + + | Constitutional: | General Appearance: healthy-appearing, | | | well hydrated, awake, alert, oriented x 3; | | | lying on table, refusing to answer most | | | questions or participate in discussion | + + + | Lungs: | Respiratory effort: no dyspnea. | | | Auscultation: breath sounds normal, equal | | | bilaterally | + + + | Cardiovascular: | Heart Auscultation: RRR, no murmurs | + + + | Skin: | Inspection and palpation: erythema | + + + | Mental Status Exam: | Behavior: oppositional | + + +"
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
--- OUTSIDE RECORDS SUMMARY | ~2018-11-23 | XMS | Encounter Summary ---
Demographics + + + | Address | [address] | | | [place] [address] | + + + | Home Phone | [phone] | + + + | Preferred Language | Unknown | + + + | Marital Status | Never | + + + | Tenriism Affiliation | Unknown | + + + | Race | White | + + + | Ethnic Group | Not or | + + + Author + + + | Author | | + + + | Organization | | + + + | Address | [address] | | | [place] [address] | + + + | Phone | [phone] | + + + Care Team Providers + +------+ + | Care Commodity Specialist Name | Role | Phone | + +------+ + | Isamar Shelton MD | 3 | Unavailable | + +------+ + Reason for Visit + + | None recorded. | + + Instructions + + | 1. Ganglion cyst | + + | lidocaine 10 mg/mL (1 %) injection solution | + + | 2. Pain in testicle | + + | 3. Dry skin | + + + + | Discussion Note | + + | [id number] + [id number] (aspiration ganglion cyst) | + + Patient educational handouts: No information available. Plan of Care + + + + + | Reminders | | | Provider | | | | | | + + + + + | Appointments | Office Visit 30 | 07/24/2018 9:00AM | Leonidas Marcano MD | + [...] AT BEDTIME | | + +---+ | lamotrigine 25 mg tablet one tab dailiy | | | for two weeks, then take two tabs daily | | + +---+ | lidocaine 10 mg/mL (1 %) injection | | | solution Inject 0.5 mL IM | | + +---+ | melatonin | [...] + + + + + | lidocaine 10 mg/mL (1 %) injection | [id number]:19:02 | | solutionInject 0.5 mL IM | | + + + Vitals + + + + + | Height | Weight | BMI | Blood Pressure | + + + + + | 6 ft 2 in | 167 lbs 11.2 oz | 21.5 kg/m2 | 110/62 mm[Hg] | + + + + + Lab Results None recorded. Allergies +---------+--------+ + + +--------+-------+ | Code | Code | Name | Reaction | Severity | Status | Onset | | | System | | | | | | +---------+--------+ + + +--------+-------+ | [id number] | RxNorm | Adderall | Confusion | Moderate | Active | | | | | | | to Severe | | | +---------+--------+ + + +--------+-------+ | [id number] | RxNorm | [place] | | | Active | | +---------+--------+ + + +--------+-------+ | | | [place] | | | Active | | [...] | | +---------+--------+ + + +--------+-------+ | [id number] | RxNorm | Sulfadiazi | | | [...] + +---+ Past Encounters + ---+ | 07/03/2018Ganglion Cyst; Pain in Testicle; Dry SkinShelli Mary Sehlton MD: [address] | | [employer] [address] [place] [phone], Ph. | |Isamar Mary Shelton MD: [address] [employer] [address] [place] [phone], Ph. | + ---+ | 06/28/2018Anxiety State; Attention Deficit Hyperactivity Disorder; Insomnia; | | Alcohol Syndrome; Major Depressive DisorderLeonidas Marcano MD: [address] [facility] | | [place] [address], Ph. | + ---+ History of Present Illness Note:<div>James is a 18yo male here today for a bump on his LT wrist.</div><div>< br></div><div>1. Bump on LT Wrist: Pt reports he has had a bump on his LT wrist for a few months now and it is getting bigger. He states it hurts when you push on it but he is able to move his wrist freely.</div><div>
</div><div>2. Testicle Pain: Pt reports intermittent testicle pain. He says the pain comes on suddenly and resolves on its own. He denies any sw elling, lumps, or redness in his testicles. He denies wearing pants that are too tight and s ays he does not sit on his testicles during the day.</div><div>
</div><div>3. Dry Skin: Angel Luis larson has a patch of dry skin above his RT ear that he would like looked at.</div> Review of Systems + + + | [...] or rhonchi | + + + | Genitals: | Genitals: normal | + + + | Musculoskeletal: | Musculoskeletal: ; No edema, normal | | | peripheral pulses | + + + | Neurologic: | Neurological: motor, sensory, reflexes | + + + | Skin: | Skin: ; Approx 2 cm ganglion cyst on LT | | | wrist. Dry patch of skin anterior to RT | | | ear that has flaked off | + + +"
[2018-11-23] MEDS ORDERED: SEROQUEL XR300 MG PO (13:18)
[2018-11-23] MEDS ORDERED: REMERON45 M1 PO (13:19)
[2018-11-23] MEDS ORDERED: MINIPRESS2 MG (13:19)
[2018-11-23] MEDS ORDERED: AMANTADINE100 MG PO (13:20)
--- NOTE | 2018-11-23 17:00 | NUR ---
PT ARRIVED TO FLOOR VIA STRETCHER WITH 2 GAURDS AT BEDSIDE. [address]. PT IS ALERT AND ORIENTED. TELE #9 PLACED. HEART RATE 79. VSS. PUPILS 6MM. BRISK TO REACT. NO NEURO DEFICITS. LUNGS CLEAR. HEART SOUNDS REGULAR. SINUS RHYTHM ON THE MONITOR. CALL LIGHT IN REACH. DENIES FURTHER NEEDS.
--- NOTE | 2018-11-23 17:23 | EKG ---
[facility] [address] [place], [place] [address] Signed Normal sinus rhythm Normal ECG Confirmed by SAMANTHA HUNTER MD ([id number]) on 11/23/2018 5:23:31 PM Electronically Signed By: SAMANTHA HUNTER MD 11/23/18 1723 PATIENT NAME: KEVIN VILLAREAL TOMMIE Electrocardiogram DATE OF : [birth year] PHYSICIAN: SAMANTHA HUNTER MD REPORT #: [id number] REPORT IS CONFIDENTIAL AND NOT TO BE RELEASED WITHOUT AUTHORIZATION
--- NOTE | 2018-11-23 18:02 | NUR ---
[facility] CALLED FOR UPDATE ON PATIENT CONDITION. VITAL SIGNS AND OVERALL CONDITION OF PATIENT DISCUSSED.
--- NOTE | 2018-11-23 20:15 | NUR ---
patient requested coffee and water for himself, and the guards with him along with abi beck. call light and bedside table are within reach.
--- NOTE | 2018-11-23 21:41 | NUR ---
PATIENT STABLE. HERE. PATIENT BEING DC'D BACK TO [facility].
== END 2018-11-23 22:00 | disposition home or self-care (01) ==
LOC: ED 12:55 → MS 12:57
PROVIDERS: ADMIT Internal Medicine
DX: T43.591A Poisoning by other antipsychotics and neuroleptics, accidental (unintentional), initial encounter (principal); T43.021A Poisoning by tetracyclic antidepressants, accidental (unintentional), initial encounter; T44.6X1A Poisoning by alpha-adrenoreceptor antagonists, accidental (unintentional), initial encounter; T42.8X1A Poisoning by antiparkinsonism drugs and other central muscle-tone depressants, accidental (unintentional), initial encounter; F90.9 Attention-deficit hyperactivity disorder, unspecified type; Q86.0 Fetal alcohol syndrome (dysmorphic); R51 Headache; R93.0 Abnormal findings on diagnostic imaging of skull and head, not elsewhere classified; G89.29 Other chronic pain; M54.9 Dorsalgia, unspecified; Z79.899 Other long term (current) drug therapy; Z87.891 Personal history of nicotine dependence; Z88.2 Allergy status to sulfonamides; Z87.09 Personal history of other diseases of the respiratory system
CPT/HCPCS: 70450; 80053; 80176; 81001; 84443; 85025; 87088; 93005; 93010; 99284-25; G0378; G0480

== ENCOUNTER 2019-04-16 20:41 | Emergency (ER) | payer OTHER ==
[~2019-04-16] VITALS: Ht 193 cm; Wt 72.6 kg
[~2019-04-16 20:41] MED LIST: AMANTADINE100 MG PO; MINIPRESS2 MG; REMERON45 M1 PO; SEROQUEL XR300 MG PO
[2019-04-16] MEDS ORDERED: NAPROSYN500 MG PO (20:54)
[2019-04-16] MEDS ORDERED: PAXIL40 MG PO (20:55)
--- NOTE | 2019-04-17 15:13 | EKG ---
[facility] [address] [place], [place] [address] Signed Normal sinus rhythm with sinus arrhythmia Normal ECG When compared with ECG of 23-NOV-2018 13:04, No significant change was found Confirmed by LASHAWN BELLE DO ([id number]) on 04/17/2019 3:13:10 PM Electronically Signed By: LASHAWN BELLE DO 04/17/19 1513 PATIENT NAME: KEVIN VILLAREAL TOMMIE Electrocardiogram DATE OF : [birth year] PHYSICIAN: LASHAWN BELLE DO REPORT #: [id number] REPORT IS CONFIDENTIAL AND NOT TO BE RELEASED WITHOUT AUTHORIZATION
== END 2019-04-17 00:40 | disposition home or self-care (01) ==
LOC: ED 20:41
DX: T39.312A Poisoning by propionic acid derivatives, intentional self-harm, initial encounter (principal); J45.909 Unspecified asthma, uncomplicated; Z87.891 Personal history of nicotine dependence; Z88.2 Allergy status to sulfonamides; Z91.018 Allergy to other foods; Z79.899 Other long term (current) drug therapy
CPT/HCPCS: 80053; 80176; 81001; 84443; 85025; 93005; 93010; 96360; 99284-25; G0480; J7030

== ENCOUNTER 2019-04-28 18:26 | Emergency (ER) | payer OTHER ==
[~2019-04-28] VITALS: Ht 193 cm; Wt 77.1 kg
[~2019-04-28 18:26] MED LIST changes: +NAPROSYN500 MG PO; +PAXIL40 MG PO
--- OUTSIDE RECORDS SUMMARY | 2019-04-28 18:30 | XMS ---
PreManage Notification: KEVIN VILLAREAL Security [employer] Ware[employer] Worker Events No recent Security Events currently on file CRITERIA MET - [facility] - 2 Visits in 30 Days CARE PROVIDERS There are no care providers on record at this time. Davon has no Care Guidelines for this patient. [facility] (12 MO.) [facility] T[facility] NOTE: Visits indicate total known visits. ED[facility] VISIT TRACKING (12 MO.) [facility] [place] [facility] COMPLAINT: - SUICIDE ATTEMPT 04/16/2019 20:41 [facility] [place] TYPE: Emergency COMPLAINT: - POSS OD DIAGNOSES: - Personal history of nicotine dependence - Allergy status to sulfonamides status - Unspecified asthma, uncomplicated - Poisoning by propionic acid derivatives, intentional self-harm, initial encounter - Allergy to other foods - Other senior living (current) drug therapy - Poisoning by propionic acid derivatives, intentional self-harm, initial encounter 11/23/2018 12:56 [facility] [place] TYPE: Emergency COMPLAINT: - POSS OD INPATIENT VISIT TRACKING (12 MO.) 11/23/2018 12:57 [facility] [place] TYPE: Observation COMPLAINT: - OVERDOSE DIAGNOSES: - Dorsalgia, unspecified - Abnormal findings on diagnostic imaging of skull and head, not elsewhere classified - Poisoning by other antipsychotics and neuroleptics, accidental (unintentional), initial encounter - Toxic effect of unspecified substance, accidental (unintentional), initial encounter - Attention-deficit hyperactivity disorder, unspecified type - Poisoning by antiparkinsonism drugs and other central muscle-tone depressants, accidental (unintentional), initial encounter - alcohol syndrome (dysmorphic) - Other chronic pain - Headache - Allergy status to sulfonamides status - Poisoning by alpha-adrenoreceptor antagonists, accidental (unintentional), initial encounter - Other senior living (current) drug therapy - Poisoning by tetracyclic antidepressants, accidental (unintentional), initial encounter - Personal history of nicotine dependence - Personal history of other diseases of the respiratory system [email or web address]
== END 2019-04-28 21:20 | disposition home or self-care (01) ==
LOC: ED 18:26
DX: T14.91XA Suicide attempt, initial encounter (principal); X83.8XXA Intentional self-harm by other specified means, initial encounter; J45.909 Unspecified asthma, uncomplicated; F17.200 Nicotine dependence, unspecified, uncomplicated; Z88.2 Allergy status to sulfonamides; Z91.018 Allergy to other foods; Z79.899 Other long term (current) drug therapy
CPT/HCPCS: 70491; 99285-25

== ENCOUNTER 2019-10-06 15:45 | Emergency (ER) | payer OTHER ==
[~2019-10-06] VITALS: Ht 193 cm; Wt 72.6 kg
[2019-10-06] MEDS ORDERED: VENTOLIN HFA18 GM INH (16:56)
[2019-10-06] MEDS ORDERED: DICLOFENAC EPO1 EACH TD (16:57)
[2019-10-06] MEDS ORDERED: HYDROXYZINE HCL50 MG PO (16:58)
== END 2019-10-06 17:51 | disposition home or self-care (01) ==
LOC: ED 15:45
DX: S10.91XA Abrasion of unspecified part of neck, initial encounter (principal); X83.8XXA Intentional self-harm by other specified means, initial encounter; J45.909 Unspecified asthma, uncomplicated; Z87.891 Personal history of nicotine dependence; Z88.2 Allergy status to sulfonamides; Z91.018 Allergy to other foods; Z79.899 Other long term (current) drug therapy
CPT/HCPCS: 99284